=== PATIENT | female | born 1975 | race Caucasian/White ===

== ENCOUNTER 2018-05-28 08:28 | Day surgery (SDC) | payer OTHER ==
[~2018-05-28 08:28] MED LIST: Buffered Lidocaine 0.9% SYRIN* 5 ML/SYR SYRINGE INTRADERM ONE; Famotidine IV* 10 MG/ML 2 ML (20 mg) IV ONE
[2018-05-28] MEDS ORDERED: Famotidine IV* 10 MG/ML 2 ML (20 mg) ONE (08:36)
[2018-05-28] MEDS ORDERED: Lidocaine 2% PF * 5 ML VIAL ONE (09:44)
[2018-05-28] MEDS ORDERED: Propofol* 10 MG/ML 20 ML BTL IV PUSH ONE (09:44)
[2018-05-28] MEDS ORDERED: fentaNYL* 50 MCG/ML 2 ML VIAL (100 MCG VIAL) ONE ×2 (09:44→11:08)
[2018-05-28] MEDS ORDERED: Ondansetron INJ* 2 MG/ML VIAL ONE (09:44)
[2018-05-28] MEDS ORDERED: Midazolam* 1 MG/ML 5 ML VIAL (5 MG) ONE (09:44)
[2018-05-28] MEDS ORDERED: Ketorolac INJ* 30 MG/ML 1 ML VIAL ONE (09:44)
[2018-05-28] MEDS ORDERED: Dexamethasone IV* 4 MG/ML 1 ML (4 MG) ONE (09:44)
[2018-05-28] MEDS ORDERED: DiMENhydriNATE IV* 50 MG/ML VIAL IV PUSH PRN ×2 (09:47→13:04)
[2018-05-28] MEDS ORDERED: Naloxone* 0.4 MG/ML 1 ML VIAL IV PRN (09:47)
[2018-05-28] MEDS ORDERED: Acetaminophen TAB* 325 MG PO PRN (09:47)
[2018-05-28] MEDS ORDERED: ROPIVACAINE 5 MG/ML 30 ML BTL (0.5%) ONE (10:22)
[2018-05-28] MEDS ORDERED: ceFAZolin 2 GM in NS PREMIX(*) 2 GM/100 ML BAG IVPB ONE (11:05)
[2018-05-28] MEDS ORDERED: DiMENhydriNATE IV* 50 MG/ML VIAL ONE (12:20)
[2018-05-28] MEDS ORDERED: Scopolamine 1.5 mg* PATCH ONE (13:03)
[2018-05-28 13:53] VITALS: BP 125/72
[2018-05-28] MEDS ORDERED: Scopolamine 1.5 mg* PATCH TRANSDERM SCH (14:00)
--- NOTE | 2018-05-29 01:34 | OP ---
DATE OF OPERATION: 05/28/18 - [facility] DATE OF : 75 SURGEON: Medardo Rosales MD [employer] REPRESENTATIVE: VENKAT Gottlieb ANESTHESIOLOGIST: Linda Glaser MD ANESTHESIA: General. PRE-OP DIAGNOSIS: Right median nerve compression near the wrist and distal forearm secondary to prior surgery for Kienbock's disease. POST-OP DIAGNOSIS: Right median nerve compression near the wrist and distal forearm secondary to prior surgery for Kienbock's disease. OPERATIVE PROCEDURE: Right median nerve extensive neurolysis at the wrist utilizing an incision roughly 15 to 20 cm in length with extensive median nerve neurolysis and nerve wrapping. Please note that this was substantially more difficult that a normal carpal tunnel release. INDICATIONS: Antonia has had Kienbock's disease and has had multiple procedures on the right wrist including a radial shortening osteotomy done through a volar approach with subsequent removal of the plate. She developed severe neurogenic pain in the median nerve distribution. She has a Tinel's sign in the distal forearm near the area of her prior incision. I talked to her about doing a decompression and see if we can get her some relief. She very much wanted to proceed. She understands the risks of persistent pain and numbness and tingling despite surgery. ESTIMATED BLOOD LOSS: 2 mL. COMPLICATIONS: None. FINDINGS: See above and below. DESCRIPTION OF PROCEDURE: Antonia was seen in the preoperative holding area. The correct site, side, and procedure were identified. We came back to the operating room where the arm was prepped and draped in the usual fashion. A time-out was performed. The arm was exsanguinated with the Esmarch and the tourniquet inflated to 250 mmHg. I then made a longitudinal incision in the proximal palm, which was brought back across the ulnar wrist in William type fashion. This was then connected to her prior FCR incision proximally. Dissection was carried down. The distal antebrachial fascia and transverse carpal ligament were identified. The transverse carpal ligament was released just off the radial aspect of the hook of the hamate. It was immediately apparent that the median nerve in the area was very scarred and adherent to the adjacent tissue; this continued to a level about 3 to 4 cm proximal to the wrist flexion crease. Ultimately, extensive median nerve neurolysis was performed. It took quite some time, but I was able to free up the median nerve circumferentially from all the adjacent scar tissue. It was scarred to the FDS muscle as well. Ultimately, I ended up cleaning up all of that tissue and once I performed the neurolysis, it looked like it needed a nerve wrap and so I brought in an AxoGuard 7 x 40 mm nerve wrap. This was placed around the median nerve in the carpal tunnel and the distal forearm. This was sewed into place with 6-0 Prolene suture taking care not to sew the wrap to the nerve. Once all of the disease portions of the nerve had been covered and wrapped, we irrigated out the wound. Skin was closed with 4-0 nylon suture. A short arm cock-up splint was applied. Tourniquet was deflated and she was taken to the recovery room in stable condition. [id number]/CPS #: [id number] SEN
== END 2018-05-28 13:50 | disposition home or self-care (01) ==
LOC: OREAST 08:28
PROVIDERS: ATTEND Orthopaedic Surgery Hand Surgery
CPT/HCPCS: A9270-GY; J0690; J1100; J1240; J1885; J2250; J2405; J2704; J2795; J3010

== ENCOUNTER 2019-01-26 01:04 | Emergency (ER) | payer MEDICARE, BC, MEDICAID ==
--- NOTE | 2019-01-26 02:12 | ED ---
Lower Extremity - HPI Summary HPI Summary: Pt is a 43 y/o female who presents to the ED c/o LLE pain. 3 days ago she began to have LLE pain, located in her calf and behind her knee. Pt also c/o numbness of her left foot. She denies any edema. Pain is rated a 9/10 in severity, and is not made better or worse by anything. PMHx arthritis. Pt denies smoking or use of control. She takes daily ASA. - History of Current Complaint Chief Complaint: EDExtremityLower Stated Complaint: "L LEG PAIN" PER PT Hx Obtained From: Patient Mechanism Of Injury: Other - No injury Onset of Pain: Days - 3 Onset/Duration: Still Present Severity Currently: Severe Pain Intensity: 9 Pain Scale Used: 0-10 Numeric Timing: Constant Location: Is Discrete @ - LLE Associated Signs And Symptoms: Positive: Other - numbness. Negative: Swelling Aggravating Factor(s): Nothing Alleviating Factor(s): Nothing - Allergies/Home Medications Allergies/Adverse Reactions: Allergies Allergy/AdvReac Type Severity Reaction Status Date / Time No Known Allergies Allergy Verified 01/26/19 01:13 PMH/Surg Hx/FS Hx/Imm Hx Cardiovascular History: Reports: Hx Hypercholesterolemia, Hx Hypertension, Hx Myocardial Infarction GI History: Reports: Hx Gastroesophageal Reflux Disease History: Reports: Hx Kidney Stones - 2 YRS AGO Musculoskeletal History: Reports: Hx Arthritis - BACK, Hx Back Problems Sensory History: Denies: Hx Contacts or Glasses, Hx Hearing Aid Opthamlomology History: Denies: Hx Contacts or Glasses Neurological History: Reports: Hx Migraine - r/t BP- now on meds- no more migraines, Other Neuro Impairments/Disorders - CHARCOT-SUNG TOOTH Psychiatric History: Reports: Hx Depression - Cancer History Hx Chemotherapy: No - Surgical History Surgery Procedure, Year, and Place: 1997 TUBAL LIGATION. 2011 L5/S1 FUSION [place]. 2011 LASER LITHOTRIPSY. 2000 RIGHT WRIST. hysterectomy 2014 Hx Anesthesia Reactions: No Infectious Disease History: No Infectious Disease History: Denies: Traveled Outside the [place] in Last 30 Days - Family History Known Family History: Positive: Cardiac Disease, Hypertension, Diabetes, Other - [place] - Social History Alcohol Use: None Hx Substance Use: No Substance Use Type: Reports: None Hx Tobacco Use: Yes Smoking Status (MU): Former Smoker Amount Used/How Often: 1/2 PACK PER DAY, smoked for 20 years Review of Systems Positive: Myalgia - LLE. Negative: Edema Positive: Numbness - L foot All Other Systems Reviewed And Are Negative: Yes Physical Exam - Summary Physical Exam Summary: Appearance: well appearing, no pain distress Skin: warm, dry, reflects adequate perfusion Head/face: normal Eyes: EOMI, JOCELINE ENT: mucous membranes moist Neck: supple, non-tender Respiratory: CTA, breath sounds present Cardiovascular: RRR, pulses symmetrical Abdomen: non-tender, soft Bowel Sounds: present Musculoskeletal: strength/ROM intact, normal gait, back pain with straight leg raise, no redness or edema of LLE, tenderness of posterior left calf and thigh without palpable cord Neuro: A&Ox3, symmetrically decreased patellar reflexes Triage Information Reviewed: Yes Vital Signs On Initial Exam: Initial Vitals Temp Pulse Resp BP Pulse Ox 98.4 F 72 16 149/89 98 01/26/19 01:09 01/26/19 01:09 01/26/19 01:09 01/26/19 01:01/26/19 01:09 Vital Signs Reviewed: Yes Diagnostics - Vital Signs Vital Signs Temp Pulse Resp BP Pulse Ox 01/26/19 01:09 98.4 F 72 16 149/89 98 - Laboratory Lab Statement: Any lab studies that have been ordered have been reviewed, and results considered in the medical decision making process. Lower Extremity Course/Dx - Course Course Of Treatment: Patient with a history of [id number] and chronic back pain presents with pain in the left posterior calf, thigh. Possible lumbar radiculopathy but would like to get a DVT/vascular ultrasound to rule out DVT and López's cyst. This is not available at this hour and the patient has chosen to be treated for discomfort now and return at 7 AM for vascular ultrasound. She was offered to stay until that time which she declined. - Diagnoses Differential Diagnosis/HQI/PQRI: Positive: Contusion, DVT, Sciatica, Sprain, Strain Provider Diagnoses: Lumbar radiculopathy, Left leg pain Discharge - Sign-Out/Discharge Documenting (check all that apply): Patient Departure - Discharge Patient Received Moderate/Deep Sedation with Procedure: No - Discharge Plan Condition: Improved Disposition: HOME Patient Education Materials: Lumbar Radiculopathy (ED), Leg Pain (ED) Referrals: Keila Campbell MD [Primary Care Provider] - Additional Instructions: Return to the ER at 7 AM to have a vascular ultrasound performed to evaluate your leg for blood clot. Return earlier should you have chest pain, trouble breathing, uncontrolled pain or other concerns. - Billing Disposition and Condition Condition: IMPROVED Disposition: Home - Attestation Statements Document Initiated by Desmond: Yes Documenting Scribe: Kira Pascal Provider For Whom Scribe is Documenting (Include Credential): Goyo Germain MD Scribe Attestation: Kira Madison, scribed for Goyo Germain MD on 01/26/19 at 0603. Scribe Documentation Reviewed: Yes Provider Attestation: The documentation as recorded by the Kira carter accurately reflects the service I personally performed and the decisions made by , Goyo Germain MD Status of Scribe Document: Viewed
[2019-01-26] MEDS ORDERED: Ibuprofen TAB* 600 MG PO ONE (02:21)
[2019-01-26] MEDS ORDERED: Cyclobenzaprine TAB* 10 MG PO ONE (02:21)
[2019-01-26] MEDS ORDERED: oxyCODONE/Acetamin 5/325 MG* TAB PO ONE (02:21)
[2019-01-26 02:34] VITALS: BP 138/64
== END 2019-01-26 02:34 | disposition home or self-care (01) ==
LOC: ED 01:04
DX: M54.16 Radiculopathy, lumbar region (principal); M79.605 Pain in left leg; Z87.891 Personal history of nicotine dependence
CPT/HCPCS: 99282; A9270-GY

== ENCOUNTER 2019-01-26 07:00 | Emergency (ER) | payer MEDICARE, BC, MEDICAID ==
[2019-01-26 09:14] VITALS: BP 135/83
--- NOTE | 2019-01-26 13:28 | UC ---
Lower Extremity/Ankle HPI - HPI Summary HPI Summary: Patient is a 43-year-old female presenting to the ED with left lower extremity pain without edema. She states pain began approximately 2-3 days ago. It is located in her calf and behind her knee. This radiates up into the hamstring area over the area where she had a vein ligated. She endorses intermittent numbness and tingling to her left foot and toes. Pain is worse with rest and better with ambulation. She does have arthritis, denies any recent travel, OCP use, smoking. She was seen in the ED last night and encouraged to return this morning for a DVT ultrasound workup. - History of Current Complaint Chief Complaint: EDExtremityLower Stated Complaint: "VASCULAR US OF LT LEG" PER PT Time Seen by Provider: 01/26/19 07:10 Hx Obtained From: Patient ?: No Onset/Duration: Sudden Onset Severity Initially: Moderate Severity Currently: Moderate Pain Intensity: 5 Pain Scale Used: 0-10 Numeric Aggravating Factor(s): Other - rest Alleviating Factor(s): Other - ambulation Able to Bear Weight: Yes - Risk Factors Gout Risk Factors: Negative DVT Risk Factors: Negative Septic Arthritis Risk Factor: Negative - Allergies/Home Medications Allergies/Adverse Reactions: Allergies Allergy/AdvReac Type Severity Reaction Status Date / Time No Known Allergies Allergy Verified 01/26/19 08:28 PMH/Surg Hx/FS Hx/Imm Hx Previously Healthy: Yes - Surgical History Surgical History: Yes Surgery Procedure, Year, and Place: 1997 TUBAL LIGATION. 2011 L5/S1 FUSION [place]. 2010 LASER LITHOTRIPSY. 2000 RIGHT WRIST. hysterectomy 2014 - Family History Known Family History: Positive: Cardiac Disease, Hypertension, Diabetes, Other - [place] - Social History Alcohol Use: None Substance Use Type: None Smoking Status (MU): Former Smoker Amount Used/How Often: 1/2 PACK PER DAY, smoked for 20 years When Did the Patient Quit Smoking/Using Tobacco: 2017 Review of Systems All Other Systems Reviewed And Are Negative: Yes Constitutional: Positive: Negative Skin: Positive: Negative ENT: Positive: Negative Genitourinary: Positive: Negative Motor: Positive: Other - pain to the L calf Neurovascular: Positive: Negative Musculoskeletal: Positive: Negative Is Patient Immunocompromised?: Yes Physical Exam Triage Information Reviewed: Yes Appearance: Well-Appearing, Well-Nourished Vital Signs: Initial Vital Signs Temp 97.8 F 01/26/19 07:03 Pulse 72 01/26/19 07:03 Resp 16 01/26/19 07:03 BP 138/91 01/26/19 07:03 Pulse Ox 98 01/26/19 07:03 Vital Signs Reviewed: Yes Eye Exam: Normal Eyes: Positive: Conjunctiva Clear Neck exam: Normal Neck: Positive: Supple, No Lymphadenopathy Respiratory Exam: Normal Respiratory: Positive: Chest non-tender Cardiovascular Exam: Normal Cardiovascular: Positive: RRR Musculoskeletal Exam: Normal Musculoskeletal: Positive: Strength Intact Psychological Exam: Normal Psychological: Positive: Normal Response To Family Skin Exam: Normal Lower Extremity Course/Dx - Course Course Of Treatment: Patient was seen here this morning. She presents for the second time with left calf pain with request for DVT ultrasound. DVT ultrasound obtained which is negative. Discussed results with patient. On physical examination, patient has pain with palpation to the left calf. Pulses +2 intact bilaterally. There is no ecchymosis or erythema. No numbness or tingling on physical exam. Patient is ambulatory. She will follow-up with her PCP. - Differential Dx/Diagnosis Differential Diagnosis/HQI/PQRI: Other - strain, calf pain, varicose veins, claudication Provider Diagnosis: Calf pain Discharge - Sign-Out/Discharge Documenting (check all that apply): Patient Departure Patient Received Moderate/Deep Sedation with Procedure: No - Discharge Plan Condition: Stable Disposition: HOME Patient Education Materials: Lumbar Radiculopathy (ED) Referrals: Keila Campbell MD [Primary Care Provider] - Additional Instructions: This may be a nerve pain you are experiencing You have good pulses and no DVT found on ultrasound Ibuprofen 600mg three times daily as needed Heat to the area Try elevation Please follow up with your PCP as scheduled in 1 week If you develop discolorations or temperature changes to the leg/foot - you need to be reseen immediately - Billing Disposition and Condition Condition: STABLE Disposition: Home
== END 2019-01-26 09:13 | disposition home or self-care (01) ==
LOC: ED 07:00
DX: M79.662 Pain in left lower leg (principal); Z87.891 Personal history of nicotine dependence
CPT/HCPCS: 99282

== ENCOUNTER 2019-01-29 01:53 | Observation (INO) | payer MEDICARE, BC, MEDICAID ==
[2019-01-29] MEDS ORDERED: Ondansetron INJ* 2 MG/ML VIAL IV ONE (02:26)
[2019-01-29] MEDS ORDERED: Morphine 4 MG/ML VIAL (1 ml) 4 MG/ML VIAL IV ONE (02:26)
[2019-01-29] MEDS ORDERED: Aspirin 81 mg CHEW TAB* 81 MG TAB.CHEW PO ONE (02:26)
--- NOTE | 2019-01-29 02:26 | ED ---
HPI Chest Pain - HPI Summary HPI Summary: 43 year old F presenting to [facility] accompanied by with a chief complaint of mid sternal, constant chest pain radiating to the back since 2 hours ago. The patient rates the pain 10/10 in severity. Symptoms aggravated by nothing. Symptoms alleviated by nothing. Patient reports vomiting, nausea, shortness of breath, insomnia. Patient was seen here in ED on 01/26/19 for posterior left thigh pain. Patient has hx AL on 03/21/17. Patient was unable to get stent at the time. - History of Current Complaint Chief Complaint: EDChestPainROMI Time Seen by Provider: 01/29/19 02:16 Hx Obtained From: Patient Onset/Duration: Started Hours Ago - 2, Still Present Timing: Constant Current Severity: Severe Pain Intensity: 10 Pain Scale Used: 0-10 Numeric Chest Pain Location: Mid Sternal Chest Pain Radiates: Yes Chest Pain Radiates To:: Back Aggravating Factor(s): Nothing Alleviating Factor(s): Nothing Associated Signs and Symptoms: Positive: Other: - vomiting, SOB, insomnia, nausea - Allergy/Home Medications Allergies/Adverse Reactions: Allergies Allergy/AdvReac Type Severity Reaction Status Date / Time No Known Allergies Allergy Verified 01/29/19 02:11 Home Medications: Home Medications celeCOXIB CAP* [CeleBREX CAP*] 200 mg PO DAILY 01/29/19 [History Confirmed 01/29] PMH/Surg Hx/FS Hx/Imm Hx Previously Healthy: No Cardiovascular History: Reports: Hx Hypercholesterolemia, Hx Hypertension, Hx Myocardial Infarction - in 2017 GI History: Reports: Hx Gastroesophageal Reflux Disease History: Reports: Hx Kidney Stones - 2 YRS AGO Musculoskeletal History: Reports: Hx Arthritis - BACK, Hx Back Problems Sensory History: Denies: Hx Contacts or Glasses, Hx Hearing Aid Opthamlomology History: Denies: Hx Contacts or Glasses Neurological History: Reports: Hx Migraine - r/t BP- now on meds- no more migraines, Other Neuro Impairments/Disorders - CHARCOT-SUNG TOOTH Psychiatric History: Reports: Hx Depression - Cancer History Hx Chemotherapy: No - Surgical History Surgery Procedure, Year, and Place: 1997 TUBAL LIGATION. 2011 L5/S1 FUSION [place]. 2010 LASER LITHOTRIPSY. 2000 RIGHT WRIST. hysterectomy 2015 Hx Anesthesia Reactions: No Infectious Disease History: No Infectious Disease History: Denies: Traveled Outside the [place] in Last 30 Days - Family History Known Family History: Positive: Cardiac Disease, Hypertension, Diabetes, Other - [place] - Social History Alcohol Use: None Hx Substance Use: No Substance Use Type: Reports: None Hx Tobacco Use: Yes Smoking Status (MU): Former Smoker Amount Used/How Often: 1/2 PACK PER DAY, smoked for 20 years Review of Systems Positive: Chest Pain Positive: Shortness Of Breath Positive: Vomiting, Nausea Positive: Other - insomnia All Other Systems Reviewed And Are Negative: Yes Physical Exam - Summary Physical Exam Summary: VITAL SIGNS: Reviewed. GENERAL: Patient is a well-developed and nourished FEMALE who is lying comfortable in the stretcher. Patient is not in any acute respiratory distress. HEAD AND FACE: No signs of trauma. No ecchymosis, hematomas or skull depressions. No sinus tenderness. EYES: PERRLA, EOMI x 2, No injected conjunctiva, no nystagmus. EARS: Hearing grossly intact. Ear canals and tympanic membranes are within normal limits. MOUTH: Oropharynx within normal limits. NECK: Supple, trachea is midline, no adenopathy, no JVD, no carotid bruit, no c- spine tenderness, neck with full ROM CHEST: Symmetric, no tenderness at palpation LUNGS: Clear to auscultation bilaterally. No wheezing or crackles. CVS: Regular rate and rhythm, S1 and S2 present, no murmurs or gallops appreciated. ABDOMEN: Soft, non-tender. No signs of distention. No rebound no guarding, and no masses palpated. Bowel sounds are normal. EXTREMITIES: FROM in all major joints, no edema, no cyanosis or clubbing. NEURO: Alert and oriented x 3. No acute neurological deficits. Speech is normal and follows commands. SKIN: Dry and warm Triage Information Reviewed: Yes Vital Signs On Initial Exam: Initial Vitals Temp Pulse Resp BP Pulse Ox 98.7 F 73 17 158/95 99 01/29/19 02:11 01/29/19 02:11 01/29/19 02:11 01/29/19 02:11 01/29/19 02:11 Vital Signs Reviewed: Yes Diagnostics - Vital Signs Vital Signs Temp Pulse Resp BP Pulse Ox 01/29/19 02:11 98.7 F 73 17 158/95 99 - Laboratory Result Diagrams: 01/29/19 02:46 05/17/19 02:46 Lab Statement: Any lab studies that have been ordered have been reviewed, and results considered in the medical decision making process. - Radiology CXR Radiology Interpretation Completed By: ED Physician Summary of Radiographic Findings: No acute process. Pending official report. - EKG 0207 Cardiac Rate: NL - 76 BPM EKG Rhythm: Sinus Rhythm Summary of EKG Findings: Normal axis. Normal interval. No ischemic changes. Chest Pain Course/Dx - Course Course Of Treatment: 43 year old F presenting to [facility] accompanied by with a chief complaint of mid sternal, constant chest pain radiating to the back , vomiting, nausea, shortness of breath, insomnia since 2 hours ago. In ED course, patient was given Aspirin, Morphine, Zofran, and Protonix. EKG was normal. CXR shows no acute process. Test results showed no significant abnormalities. Patient has hx AL after which she did not have stent placed. Spoke with Dr. Webster, hospitalist, who agrees to admit patient. The patient will be admitted to hospitalist. The patient is agreeable to this plan. - Diagnoses Provider Diagnoses: Chest pain - Provider Notifications Discussed Care Of Patient With: Sunshine Webster Time Discussed With Above Provider: 03:21 Instructed by Provider To: Other - Dr. Webster, hospitalist, agrees to admit patient. Discharge - Sign-Out/Discharge Documenting (check all that apply): Patient Departure - Admit Patient Received Moderate/Deep Sedation with Procedure: No - Discharge Plan Condition: Stable Disposition: ADMITTED TO [facility] Referrals: Keila Campbell MD [Primary Care Provider] - - Attestation Statements Document Initiated by Scribe: Yes Documenting Scribe: Ale Floewr Provider For Whom Desmond is Documenting (Include Credential): Deepti Escamilla MD Scribe Attestation: Ale Madison, ezeed for Deepti Escamilla MD on 01/29/19 at 0333. Status of Scribe Document: Ready
[2019-01-29] MEDS ORDERED: Pantoprazole IV* 40 MG IV ONE (02:27)
--- OUTSIDE RECORDS SUMMARY | 2019-01-29 02:39 | XMS REPORT | Continuity of Care Document ---
:1975 External Reference #:[id number] Author Name Keila Campbell MD Address [address] [place] [address] Care Team Providers Name Role Phone Keila Campbell MD Primary Care Physician Unavailable Payers Date Identification Numbers Payment Provider Subscriber Effective: 2018 Policy Number: [id number] Medicare Part B Antonia Judge Group Name: [facility] [address] PayID: [id number] [place] [address] Effective: 2018 Policy Number: [employer] Antonia Judge [id number] Group Number: MEDICARE [address] [address] Group Name: Supplement N GERALDINE Sears [id number] PayID: [id number] Policy Number: [id number] Medicaid Antonia Judge PayID: [id number] [address] [place] [address] Onset: 2010 Policy Number: [id number] [employer] Antonia Judge PayID: [id number] [address] [place] [address] Policy Number: [place] [facility] [employer] [facility] Dept [address] [place] [address] Expires: 2016 Policy Number: [facility] Plan [facility] Antonia Judge [id number] Group Number: [id number] [address] PayID: [id number] [place] [address] Problems Active Problems Provider Date Mixed hyperlipidemia Keila Campbell MD Onset: 12/14/2013 Spina bifida occulta Keila Campbell MD Onset: 08/31/2010 Hereditary peripheral neuropathy Keila Campbell MD Onset: 05/17/2015 Kidney stone Keila Campbell MD Onset: 10/17/2015 Moderate recurrent major depression Keila Campbell MD Onset: 01/24/2016 Low back pain Keila Campbell MD Onset: 03/13/2016 Essential hypertension Keila Campbell MD Onset: 03/27/2017 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 Inactive Problems Electrocardiogram abnormal Keila Campbell MD Onset: 03/13/2016 Inactive: 01/29/2018 Resolved Problems Tobacco user Keila Campbell MD Onset: 08/01/2016 Resolved: 05/30/2017 Family History Date Family Member(s) Observation Comments Father Diabetes, Adult Non Insulin Dependent Onset: (age 50 Years) Father CAD Father Hypertension First Son Allergies Seasonal Social History Type Date Description Comments Sex Unknown Marital Status Single Lives With Boyfriend Samuel Jin Lives With Son Diet 08/03/2018 Average daily caloric on no special diet intake excessive 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 for back injury - on SSD in 2018 Tobacco Use Start: 09/15/90 End: Former Cigarette Smoker had been N intermittent 03/24/17 smoker - 1/2 - 1 pack daily Smoking Status Reviewed: 08/03/18 Former Cigarette Smoker had been N intermittent smoker - 1/2 - 1 pack daily ETOH Use Rarely consumes alcohol Tobacco Use Start: Unknown End: Patient is a former Unknown smoker Allergies, Adverse Reactions, Alerts Description No Known Drug Allergies Medications Active Medications SIG Qnty Indications Ordering Date Provider Aspirin 81 1 by mouth every 90tabs I25.110 Keila Campbell, 01/28/2019 81mg Tablets day MD SHETH Celecoxib 1 by mouth every 30caps Keila Campbell, 01/28/2019 200mg Capsules day as needed Ibuprofen take 1 tablet by 90tabs M54.5 Keila Campbell, 08/28/2018 800mg Tablets mouth 3 times a MD day for 1 week. do not take with other nsaids Nitroglycerin 1 sl as needed 30tabs I25.110 Keila Campbell, 08/03/2018 0.4mg chest pain may MD Tablets Sub repeat every 5 minutes as needed x 2 additional doses. if no relief then go to er Omeprazole 1 by mouth every 90caps R12 Keila Campbell, 11/25/2017 40mg Capsules day MD SHETH Benzonatate 2 by mouth three 60caps R05 Keila Campbell, 07/21/2017 100mg times a day as MD Capsules needed for cough Atorvastatin Calcium 1 by mouth every 90tabs E78.2 Keila Campbell, 2016 40mg day Tablets Lisinopril 1 by mouth every 90tabs I10 Keila Campbell, 03/27/2017 5mg Tablets day Proctosol HC apply twice a day 28.350gm K64.9 Keila Campbell, 01/27/2017 2.5% Cream if needed until MD resolved Acetaminophen 2 by mouth four Unknown 325mg times a day as Tablets needed Cyclobenzaprine HCL 2 tablets by Unknown 10mg mouth as needed Tablets for muscle spasms. Vitamin D 1 by mouth every 90tabs Keila Campbell, 1000Unit day Tablets Cymbalta 1 by mouth every F33.1 Unknown 20mg Caps bedtime Part M54.5 History Medications Oseltamivir 1 by mouth every 10caps Keila Campbell, 10/14/2017 - Phosphate day for 10 days 11/25/2017 75mg Capsules Amoxicillin 1 by mouth twice a 20tabs R05 Keila Campbell, 07/21/2017 - 875mg day for 10 days 07/31/2017 Tablets Aspir-81 1 by mouth every 90tabs I25.110 Keila Campbell, 03/27/2017 - 81mg Tablets day MD 01/28/2019 Amoxicillin/Clavulan 1 by mouth twice a 20tabs J01.90 Shawn Suarez, - ate Potassium day DO 01/14/2017 875-125mg Tablets Benzonatate 1 by mouth every 8 30caps J01.90 Shawn Suarez, 01/04/2017 - 200mg hours as needed DO 01/14/2017 Capsules for cough, may cause drowsiness Fluticasone 2 sprays each nare 16gm R09.81 Keila Campbell 10/02/2016 - Propionate every day MD 01/27/2019 50mcg/Act Suspension Azelastine HCL 2 sprays each 30ml J01.90 Keila Campbell, 09/18/2016 - (Nasal) nostril twice a MD 10/02/2016 0.15% day as needed for Solution nasal congestion Azithromycin 2 by mouth today, 6tabs J01.90 Keila Campbell, 09/18/2016 - 250mg then 1 by mouth 10/04/2016 Tablets daily x 4 more days Benzonatate 1 by mouth every 8 30caps J01.90 Digiovanna, 08/28/2016 - 200mg hours as needed Minerva, LATHE MACHINIST 10/29/2016 Capsules for cough, may cause drowsiness Amoxicillin/Clavulan 1 by mouth every 20tabs J01.90 Digiovanna, 2015 - ate Potassium 12 hours for 10 Minerva, LATHE MACHINIST 09/07/2016 days 875-125mg Tablets Meloxicam 1 tab by mouth 30tabs M54.6 Kiela Campbell, 08/13/2016 - 15mg daily for pain for MD 09/18/2016 Tablets 1-2 weeks, then daily as needed for pain Sulfamethoxazole/Tri 1 by mouth twice a 20tabs L02.13 Shawn Suarez, - methoprim DS day DO 07/08/2016 800-160mg Tablets Cephalexin 1 by mouth four 40tabs J01.00 Keila Campbell, 10/11/2015 - 500mg times a day x 10 MD 01/24/2016 Tablets days Neomycin/Polymyxin/H 4 drops to 10ml H60.311 Keila Campbell, 10/11/2015 - ydrocortisone (Otic) affected ear 4 MD 01/24/2016 times daily x 10 [id number] Solution days Ibuprofen 1 po tid prn 90tabs N20.0 Keila Campbell, 01/18/2005 - 200mg MD 11/25/2017 Tablets M54.5 Hydrocodone Bitartrate / 1-2 by mouth four Unknown - 2018 Acetaminophen times a day as 5-325mg needed for pain Brilinta 1 by mouth twice a I10 Unknown - 08/03/2018 90mg Tablets day I25.110 Clopidogrel Bisulfate 1 by mouth every day Unknown - 2017 75mg Tablets Lidocaine 1 patch 12 hours on Unknown - 11/25/2017 5% Patches /12 hours off Ranitidine 150 Maximum 1 by mouth twice a R12 Unknown - 2017 Strength day 150mg Tablets Brilinta 1 by mouth twice a I10 Unknown - 09/18/2017 90mg Tablets day I25.110 Metoprolol 1/2 by mouth twice a I10 Unknown - 05/30/2017 25mg day I25.110 Voltaren apply to the affected Unknown - 08/13/2016 1% Gel area four times a day as needed Lidoderm 1 patch 12 hours on 90units Unknown - 10/11/2015 5% Patches /12 hours off Meclizine HCL 1 po Q8 HRS prn Unknown - 03/13/2016 25mg dizziness Tablets Meloxicam 1 po qd with food x 2 Unknown - 10/11/2015 7.5mg Tablets weeks, then prn/ On Hold Immunizations CPT Code Status Date Vaccine Lot # [id number] Given 05/23/2011 Tdap (Adacel) Ages 7 And Above Only [id number] Refused 08/03/2018 Afluria Or Fluvirin Flu Vac Intramuscular 74949 Refused 01/29/2018 Pneumococcal 23 Immunization Adult Or Immunosuppressed Patient [id number] Refused 11/25/2017 Afluria Or Fluvirin Flu Vac Intramuscular Vital Signs Date Vital Result Comment 01/28/2019 3:48pm Weight 185.00 lb Heart Rate 73 /min BP Systolic 144 mmHg BP Diastolic 94 mmHg Respiratory Rate 18 /min Height 59.50 inches 4'11.50" O2 % BldC Oximetry 98 % Ra BMI (Body Mass Index) 36.7 kg/m2 08/28/2018 4:20pm Weight 189.00 lb Heart Rate 87 /min BP Systolic 140 mmHg BP Diastolic 82 mmHg Respiratory Rate 18 /min Height 59.50 inches 4'11.50" O2 % BldC Oximetry 98 % Ra BMI (Body Mass Index) 37.5 kg/m2 08/03/2018 8:03am Weight 183.00 lb Heart Rate 80 /min BP Systolic 124 mmHg BP Diastolic 80 mmHg Respiratory Rate 18 /min Height 59.50 inches 4'11.50" 09/18/16 BMI (Body Mass Index) 36.3 kg/m2 01/29/2018 8:13am Weight 175.00 lb Heart Rate 72 /min BP Systolic 112 mmHg BP Diastolic 80 mmHg Respiratory Rate 18 /min Height 59.50 inches 4'11.50" 09/18/16 BMI (Body Mass Index) 34.8 kg/m2 11/25/2017 2:43pm Weight 170.00 lb Heart Rate 78 /min BP Systolic 130 mmHg BP Diastolic 74 mmHg Respiratory Rate 18 /min Height 59.50 inches 4'11.50" 09/18/16 BMI (Body Mass Index) 33.8 kg/m2 09/18/2017 8:42am Weight 170.00 lb Heart Rate 68 /min BP Systolic 132 mmHg BP Diastolic 72 mmHg Respiratory Rate 18 /min Height 59.50 inches 4'11.50" 09/18/16 BMI (Body Mass Index) 33.8 kg/m2 07/21/2017 8:38am Body Temperature 98.3 F Weight 170.00 lb Heart Rate 76 /min BP Systolic 126 mmHg BP Diastolic 80 mmHg Respiratory Rate 18 /min Height 59.50 inches 4'11.50" 09/18/16 O2 % BldC Oximetry 97 % BMI (Body Mass Index) 33.8 kg/m2 05/30/2017 8:00am Weight 166.00 lb Heart Rate 72 /min BP Systolic 120 mmHg BP Diastolic 68 mmHg Respiratory Rate 18 /min Height 59.50 inches 4'11.50" 09/18/16 BMI (Body Mass Index) 33.0 kg/m2 03/27/2017 1:43pm Weight 165.00 lb Heart Rate 60 /min BP Systolic 122 mmHg BP Diastolic 60 mmHg Respiratory Rate 18 /min Height 59.50 inches 4'11.50" 09/18/16 BMI (Body Mass Index) 32.8 kg/m2 01/27/2017 8:17am Weight 174.00 lb Heart Rate 68 /min BP Systolic 132 mmHg BP Diastolic 76 mmHg Respiratory Rate 18 /min Height 59.50 inches 4'11.50" 09/18/16 BMI (Body Mass Index) 34.6 kg/m2 01/04/2017 10:16am Body Temperature 98.3 F Weight 179.00 lb Heart Rate 84 /min BP Systolic 136 mmHg BP Diastolic 84 mmHg Respiratory Rate 18 /min Height 59.50 inches 4'11.50" 09/18/16 O2 % BldC Oximetry 97 % On room air BMI (Body Mass Index) 35.5 kg/m2 10/29/2016 1:24pm Weight 171.00 lb Heart Rate 88 /min BP Systolic 122 mmHg BP Diastolic 80 mmHg Respiratory Rate 18 /min Height 59.50 inches 4'11.50" 09/18/16 BMI (Body Mass Index) 34.0 kg/m2 10/04/2016 10:21am Weight 169.00 lb Heart Rate 72 /min BP Systolic 148 mmHg BP Diastolic 82 mmHg BP Systolic Recheck 130 mmHg BP Diastolic Recheck 80 mmHg Respiratory Rate 18 /min Height 59.50 inches 4'11.50" 09/18/16 BMI (Body Mass Index) 33.6 kg/m2 09/18/2016 9:20am Body Temperature 97.7 F Weight 172.00 lb Heart Rate 80 /min BP Systolic 158 mmHg BP Diastolic 100 mmHg BP Systolic Recheck 150 mmHg BP Diastolic Recheck 90 mmHg Respiratory Rate 18 /min Height 59.50 inches 4'11.50" 09/18/16 BMI (Body Mass Index) 34.2 kg/m2 08/28/2016 1:38pm Body Temperature 98.6 F Weight 169.00 lb Heart Rate 88 /min BP Systolic 142 mmHg BP Diastolic 82 mmHg Respiratory Rate 19 /min Height 59.50 inches 4'11.50" 01/24/16 O2 % BldC Oximetry 98 % Ra BMI (Body Mass Index) 33.6 kg/m2 08/13/2016 9:11am Weight 169.00 lb Heart Rate 74 /min BP Systolic 120 mmHg BP Diastolic 80 mmHg Respiratory Rate 18 /min Height 59.50 inches 4'11.50" 01/24/16 BMI (Body Mass Index) 33.6 kg/m2 08/01/2016 10:57am Body Temperature 97.2 F Weight 171.00 lb Heart Rate 76 /min BP Systolic 122 mmHg BP Diastolic 70 mmHg Respiratory Rate 18 /min Height 59.50 inches 4'11.50" 01/24/16 BMI (Body Mass Index) 34.0 kg/m2 06/28/2016 1:39pm Body Temperature 98.3 F Weight 168.00 lb Heart Rate 74 /min BP Systolic 146 mmHg BP Diastolic 90 mmHg Respiratory Rate 18 /min Height 59.50 inches 4'11.50" 01/24/16 O2 % BldC Oximetry 9798 % BMI (Body Mass Index) 33.4 kg/m2 03/13/2016 11:16am Weight 170.00 lb Heart Rate 64 /min BP Systolic 112 mmHg BP Diastolic 70 mmHg Respiratory Rate 18 /min Height 59.50 inches 4'11.50" 01/24/16 BMI (Body Mass Index) 33.8 kg/m2 01/24/2016 8:15am Weight 165.00 lb Heart Rate 68 /min BP Systolic 124 mmHg BP Diastolic 80 mmHg Respiratory Rate 18 /min Height 59.50 inches 01/24/16 BMI (Body Mass Index) 32.8 kg/m2 10/11/2015 10:59am Weight 164.00 lb Heart Rate 76 /min BP Systolic 130 mmHg BP Diastolic 90 mmHg Respiratory Rate 18 /min Height 59.50 inches 4'11.50" Done On 09/29/14 BMI (Body Mass Index) 32.6 kg/m2 05/17/2015 9:06am Weight 159.00 lb Heart Rate 76 /min BP Systolic 130 mmHg BP Diastolic 78 mmHg Respiratory Rate 18 /min Height 59.50 inches 4'11.50" Done On 09/29/14 BMI (Body Mass Index) 31.6 kg/m2 04/06/2015 10:15am Weight 156.00 lb Heart Rate 68 /min BP Systolic 132 mmHg BP Diastolic 70 mmHg Respiratory Rate 18 /min Height 59.50 inches 4'11.50" Done On 09/29/14 BMI (Body Mass Index) 31.0 kg/m2 01/09/2015 1:38pm Weight 152.00 lb Heart Rate 76 /min BP Systolic 132 mmHg BP Diastolic 92 mmHg Respiratory Rate 18 /min Height 59.50 inches 4'11.50" Done On 09/29/14 BMI (Body Mass Index) 30.2 kg/m2 01/02/2015 10:27am Weight 152.00 lb Heart Rate 76 /min BP Systolic 130 mmHg BP Diastolic 76 mmHg Respiratory Rate 18 /min Height 59.50 inches 4'11.50" Done On 09/29/14 BMI (Body Mass Index) 30.2 kg/m2 12/23/2014 9:30am Weight 152.00 lb Heart Rate 80 /min BP Systolic 130 mmHg BP Diastolic 88 mmHg Respiratory Rate 18 /min Height 59.50 inches 4'11.50" Done On 09/29/14 BMI (Body Mass Index) 30.2 kg/m2 12/14/2014 10:16am Weight 152.00 lb Heart Rate 76 /min BP Systolic 122 mmHg BP Diastolic 70 mmHg Respiratory Rate 18 /min Height 59.50 inches 4'11.50" Done On 09/29/14 BMI (Body Mass Index) 30.2 kg/m2 10/24/2014 9:52am Weight 153.00 lb Heart Rate 76 /min BP Systolic 122 mmHg BP Diastolic 84 mmHg Respiratory Rate 18 /min Height 59.50 inches 4'11.50" Done On 09/29/14 BMI (Body Mass Index) 30.4 kg/m2 09/29/2014 10:06am Weight 154.00 lb Heart Rate 76 /min BP Systolic 102 mmHg BP Diastolic 70 mmHg Respiratory Rate 18 /min Height 59.50 inches 4'11.50" Done On 09/29/14 BMI (Body Mass Index) 30.6 kg/m2 02/16/2014 9:54am Weight 160.00 lb Heart Rate 76 /min BP Systolic 110 mmHg BP Diastolic 70 mmHg Respiratory Rate 18 /min Height 59.5 inches 4'11.50" (Done On 11/24/13) 02/14/2014 3:44pm Weight 157.00 lb Heart Rate 76 /min BP Systolic 120 mmHg BP Diastolic 70 mmHg Respiratory Rate 18 /min Height 59.5 inches 4'11.50" (Done On 11/24/13) 12/14/2013 2:40pm Weight 172.00 lb Heart Rate 80 /min BP Systolic 128 mmHg BP Diastolic 82 mmHg Respiratory Rate 18 /min Height 59.5 inches 4'11.50" (Done On 11/24/13) 12/03/2013 2:50pm Body Temperature 98.9 F Weight 170.00 lb Heart Rate 84 /min BP Systolic 122 mmHg BP Diastolic 70 mmHg Respiratory Rate 18 /min Height 59.5 inches 4'11.50" (Done On 11/24/13) O2 % BldC Oximetry 97 % 11/24/2013 8:19am Body Temperature 98.4 F Weight 170.00 lb Heart Rate 100 /min BP Systolic 130 mmHg BP Diastolic 80 mmHg Respiratory Rate 18 /min Height 59.5 inches 4'11.50" O2 % BldC Oximetry 98 % 04/20/2012 1:37pm Weight 162.00 lb Heart Rate 72 /min BP Systolic 110 mmHg BP Diastolic 74 mmHg Respiratory Rate 18 /min Height 59.25 inches 4'11.25" (Done On 03/12/12) 03/12/2012 1:28pm Body Temperature 98.3 F Weight 163.00 lb Heart Rate 92 /min BP Systolic 114 mmHg BP Diastolic 74 mmHg Respiratory Rate 18 /min Height 59.25 inches 4'11.25" O2 % BldC Oximetry 97 % 08/01/2011 3:38pm Weight 166.00 lb Heart Rate 80 /min BP Systolic 120 mmHg BP Diastolic 84 mmHg Respiratory Rate 18 /min Height 59.25 inches 4'11.25" (Done On 12/17/10) 05/23/2011 4:13pm Weight 164.00 lb Heart Rate 76 /min BP Systolic 120 mmHg BP Diastolic 80 mmHg Respiratory Rate 18 /min Height 59.25 inches 4'11.25" (Done On 12/17/10) 04/15/2011 1:07pm Weight 161.00 lb Heart Rate 80 /min BP Systolic 114 mmHg BP Diastolic 74 mmHg Respiratory Rate 18 /min Height 59.25 inches 4'11.25" (Done On 12/17/10) 12/17/2010 2:55pm Weight 164.00 lb Heart Rate 72 /min BP Systolic 120 mmHg BP Diastolic 74 mmHg Respiratory Rate 18 /min Height 59.25 inches 4'11.25" 10/30/2010 2:26pm Weight 161.00 lb Heart Rate 56 /min BP Systolic 104 mmHg r arm BP Diastolic 62 mmHg r arm Respiratory Rate 18 /min 10/01/2010 2:44pm Weight 162.00 lb Heart Rate 76 /min BP Systolic 120 mmHg BP Diastolic 84 mmHg Respiratory Rate 18 /min 08/30/2010 8:07am Weight 158.00 lb Heart Rate 80 /min BP Systolic 110 mmHg BP Diastolic 80 mmHg Respiratory Rate 18 /min Height 59.5 inches 4'11.50" 04/14/2009 11:37am Body Temperature 98.0 F Weight 154.00 lb Heart Rate 72 /min BP Systolic 140 mmHg BP Diastolic 78 mmHg 01/13/2009 3:38pm Weight 162.00 lb Heart Rate 84 /min BP Systolic 114 mmHg BP Diastolic 74 mmHg Respiratory Rate 18 /min 12/15/2008 1:38pm Body Temperature 97.7 F Weight 160.00 lb Heart Rate 72 /min BP Systolic 120 mmHg BP Diastolic 70 mmHg Respiratory Rate 18 /min Height 59.75 inches 4'11.75" O2 % BldC Oximetry 98 % 11/30/2007 4:41pm Weight 159.00 lb Heart Rate 68 /min BP Systolic 126 mmHg BP Diastolic 80 mmHg Respiratory Rate 16 /min Height 60 inches 5'0" 07/21/2007 4:10pm Weight 157.00 lb Heart Rate 80 /min BP Systolic 120 mmHg BP Diastolic 80 mmHg Respiratory Rate 16 /min Height 60 inches 5'0" 06/29/2007 3:55pm Body Temperature 98.6 F Weight 158.00 lb Heart Rate 60 /min BP Systolic 110 mmHg BP Diastolic 90 mmHg Respiratory Rate 18 /min Height 60 inches 5'0" 04/18/2007 9:08am Weight 155.00 lb Heart Rate 72 /min BP Systolic 120 mmHg BP Diastolic 80 mmHg Height 60 inches 5'0" 03/13/2007 4:27pm Weight 156.00 lb Heart Rate 72 /min BP Systolic 136 mmHg BP Diastolic 76 mmHg Respiratory Rate 18 /min Height 60 inches 5'0" 02/20/2007 4:23pm Weight 156.00 lb Heart Rate 76 /min BP Systolic 126 mmHg BP Diastolic 72 mmHg Respiratory Rate 16 /min Height 60 inches 5'0" 11/27/2006 4:02pm Weight 155.00 lb Heart Rate 76 /min BP Systolic 104 mmHg BP Diastolic 78 mmHg Respiratory Rate 16 /min Height 60 inches 5'0" 11/07/2006 1:06pm Weight 158.00 lb Heart Rate 76 /min BP Systolic 116 mmHg BP Diastolic 76 mmHg Respiratory Rate 16 /min Height 60 inches 5'0" 08/12/2006 2:36pm Weight 165.00 lb Heart Rate 88 /min BP Systolic 106 mmHg BP Diastolic 68 mmHg Respiratory Rate 16 /min Height 60 inches 5'0" 02/07/2006 4:25pm Height 60 inches 5'0" 02/07/2006 4:27pm Weight 167.00 lb Heart Rate 78 /min BP Systolic 124 mmHg BP Diastolic 70 mmHg Respiratory Rate 20 /min Height 60 inches 5'0" 10/10/2005 2:42pm Height 60 inches 5'0" 10/10/2005 2:43pm Body Temperature 98.1 F Heart Rate 72 /min BP Systolic 120 mmHg BP Diastolic 70 mmHg Respiratory Rate 18 /min Height 60 inches 5'0" 07/25/2005 2:32pm Weight 167.00 lb Heart Rate 70 /min BP Systolic 120 mmHg BP Diastolic 80 mmHg Respiratory Rate 20 /min Height 60 inches 5'0" 04/25/2005 2:47pm Weight 165.00 lb Heart Rate 80 /min BP Systolic 118 mmHg BP Diastolic 78 mmHg Respiratory Rate 18 /min Height 60 inches 5'0" 01/18/2005 3:21pm Weight 174.00 lb Heart Rate 70 /min BP Systolic 110 mmHg BP Diastolic 70 mmHg Respiratory Rate 18 /min Height 60 inches 5'0" Results Test Date Facility Test Result H/L Range Note Basic (BMP) 01/22/2019 [facility] Sodium 143 mmol/L 135-146 1, 2 Potassium 4.5 mmol/L 3.5-5.2 Chloride# 107 mmol/L 97-110 3 Carbon Dioxide 26 mmol/L 24-34 Glucose 97 mg/dL 70-105 BUN 15 mg/dL 6-26 Creatinine 0.8 mg/dL 0.5-1.4 Calcium 9.5 mg/dL 8.5-10.5 4 Female Egfr 97 >60 5 Male Egfr 112 >60 6 Anion Gap 10 mmol/L 5-15 7 Lipid Treatment 01/22/2019 [facility] Cholesterol 158 mg/dL 50-199 Triglycerides 110 mg/dL 30-200 HDL 49 mg/dL 35-85 8 Chol/ HDL Ratio 3.2 ratio Low 3.7-5.6 VLDL 22 mg/dL 2-29 LDL (Calc) 87 mg/dL 20-99 9 Alt 15 U/L 3-42 Ast 13 U/L 8-42 Laboratory test finding 01/22/2019 [facility] TSH 1.05 uIU/mL 0.35-4.94 CBC with Auto Diff-fcmg 01/22/2019 [facility] WBC 6.7 K/uL 4.1-11.0 RBC 4.59 M/uL 4.00-5.40 Hemoglobin 13.3 gm/dL 12.0-16.0 Hematocrit 40.0 % 36.0-47.0 MCV 87.1 fL 80.0-97.0 MCH 29.0 pg 27.0-32.0 MCHC 33.3 g/dL 32.0-36.0 RDW 13.3 % 11.5-14.5 PLT Count 336 K/ul 140-400 MPV 7.9 FL 7.1-10.7 Neutrophil 50.8 % 35.0-75.0 Lymphocyte 39.4 % 16.0-52.0 Monocyte 5.7 % 2.0-10.0 Eosinophil 3.4 % 0.0-5.0 Basophil 0.7 % 0.0-4.0 Abs Neutrophils 3.4 K/uL 2.1-8.0 Abs Lymphocytes 2.6 K/uL 0.8-5.5 Abs Monocytes 0.4 K/uL 0.1-1.0 Abs Eosinophils 0.2 K/uL 0.0-0.5 Abs Basophils 0.0 K/uL 0.0-0.3 Urinalysis With 08/26/2018 [facility] Urine Color YELLOW Yellow 10 Microscopic (315)- - Urine Clarity CLEAR Clear Urine Glucose - Dipstick NEGATIVE mg/dL Negative Urine Bilirubin - Dipstick NEGATIVE Negative Urine Ketone NEGATIVE mg/dL Negative Urine Specific [place] 1.025 N 1.010-1.030 Urine Blood MODERATE Abnormal Negative Urine PH 5.5 Low 6.5-7.5 Urine Protein - Dipstick NEGATIVE mg/dL Negative Urine Urobilinogen - Dipstick 0.2 E.U./dL N 0.2-1.0 Urine Nitrite - Dipstick NEGATIVE Negative Urine Leuk Esterase NEGATIVE Negative Urine RBC 0-2 rbc/hpf 0-2 Urine WBC 0-2 wbc/hpf 0-7 Urine Epithelial Cells MANY /lpf None Seen 11 Urine Bacteria VERY FEW None Seen Urine Amorph Sediment MODERATE Negative Source: URINE, CLEAN CAT <SEE NOTE> 12 CBS W/Automated Diff 08/26/2018 [facility] White Blood 8.7 K/uL N 3.1-10.7 (315)- - Count Red Blood Count 4.58 M/uL N 3.90-5.40 Hemoglobin 13.6 gm/dL N 11.6-15.8 Hematocrit 41.3 % N 36.0-46.1 Mean Cell Volume 90.2 fl N 80.9-99.0 Mean Corpuscular HGB 29.7 pg N 25.9-32.7 Mean Corpuscular HGB Conc 32.9 g/dL N 30.8-34.3 Platelet Count 315 K/uL N 155-360 Red Cell Distri Width SD 43.6 fl N 3-47 Red Cell Distri Width %CV 13.5 % N 11.7-14.4 Mean Platelet Volume 9.5 fL N 8.9-12.4 Neut% 64.7 % N 40.4-72.8 Lymph % 28.5 % N 20.0-42.0 [place] % 5.2 % N 4.3-13.2 Eo% 1.4 % N 0.0-6.6 Bas% 0.2 % N 0.0-1.1 Neut# 5.64 K/uL N 1.8-7.0 Lymph # 2.48 K/uL N 1.0-4.0 [place] # 0.45 K/uL N 0.3-0.9 Eos # 0.12 K/uL N 0.0-0.5 Baso # 0.02 K/uL N 0.0-0.1 Comprehensive Met Panel-FCM 07/28/2018 [facility] Sodium 142 mmol/L 135- 146 13, 14 Potassium 4.2 mmol/L 3.5-5.2 Chloride# 108 mmol/L 97-110 15 Carbon Dioxide 23 mmol/L Low 24-34 Glucose 108 mg/dL High 70-105 BUN 16 mg/dL 6-26 Creatinine 0.7 mg/dL 0.5-1.4 Calcium 9.2 mg/dL 8.5-10.2 Total Protein 6.0 g/dL 6.0-8.0 Albumin 4.0 g/dL 3.6-4.9 Globulin 2.0 g/dL 2.0-3.5 A/G Ratio 2.0 Ratio 1.0-2.2 Total Bilirubin 0.3 mg/dL 0.1-1.3 Alkaline Phosphatase 101 U/L 24-140 Alt 13 U/L 3-42 Ast 11 U/L 8-42 Joanna Egfr >60 >60 16 Non Joanna Egfr >60 >60 17 Anion Gap 11 mmol/L 5-15 18 Lipid 07/28/2018 [facility] Cholesterol 166 mg/dL 50-199 Triglycerides 102 mg/dL 30-200 HDL 51 mg/dL 35-85 19 Chol/ HDL Ratio 3.3 ratio Low 3.7-5.6 VLDL 20 mg/dL 2-29 LDL (Calc) 95 mg/dL 20-99 20 Comprehensive Met Panel-[facility]CMG 01/29/2018 [facility] Sodium 140 mmol/L 135- 146 21, 22 Potassium 4.4 mmol/L 3.5-5.2 Chloride# 104 mmol/L 97-110 23 Carbon Dioxide 24 mmol/L 24-34 Glucose 97 mg/dL 70-105 BUN 19 mg/dL 6-26 Creatinine 0.8 mg/dL 0.5-1.4 Calcium 9.5 mg/dL 8.5-10.2 Total Protein 6.8 g/dL 6.0-8.0 Albumin 4.2 g/dL 3.6-4.9 Globulin 2.6 g/dL 2.0-3.5 A/G Ratio 1.6 Ratio 1.0-2.2 Total Bilirubin 0.5 mg/dL 0.1-1.3 Alkaline Phosphatase 94 U/L 24-140 Alt 13 U/L 3-42 Ast 11 U/L 8-42 Joanna Egfr >60 >60 24 Non Joanna Egfr >60 >60 25 Anion Gap 12 mmol/L 5-15 26 CBC with Auto Diff-fcmg 01/29/2018 [facility] WBC 9.4 K/uL 4.1-11.0 RBC 4.67 M/uL 4.00-5.40 Hemoglobin 13.8 gm/dL 12.0-16.0 Hematocrit 40.5 % 36.0-47.0 MCV 86.9 fL 80.0-97.0 MCH 29.6 pg 27.0-32.0 MCHC 34.0 g/dL 32.0-36.0 RDW 13.4 % 11.5-14.5 PLT Count 345 K/ul 140-400 MPV 7.5 FL 7.1-10.7 Neutrophil 66.7 % 35.0-75.0 Lymphocyte 24.6 % 16.0-52.0 Monocyte 6.1 % 2.0-10.0 Eosinophil 2.1 % 0.0-5.0 Basophil 0.5 % 0.0-4.0 Abs Neutrophils 6.2 K/uL 2.1-8.0 Abs Lymphocytes 2.3 K/uL 0.8-5.5 Abs Monocytes 0.6 K/uL 0.1-1.0 Abs Eosinophils 0.2 K/uL 0.0-0.5 Abs Basophils 0.0 K/uL 0.0-0.3 Laboratory test finding 01/29/2018 [facility] TSH 1.72 uIU/mL 0.35-4.94 Lipid 01/29/2018 [facility] Cholesterol 169 mg/dL 50-199 Triglycerides 174 mg/dL 30-200 HDL 62 mg/dL 35-85 27 Chol/ HDL Ratio 2.7 ratio Low 3.7-5.6 VLDL 35 mg/dL High 2-29 LDL (Calc) 73 mg/dL 20-99 28 BUN/Creat/GFR Panel 10/13/2017 [facility] BUN/CR 18 ratio 12-20 Creatinine 0.7 mg/dL 0.5-1.4 Joanna Egfr >60 >60 29 Non Joanna Egfr >60 >60 30 BUN 13 mg/dL 6- Lipid Treatment 09/12/2017 [facility] Cholesterol 159 mg/dL 50-199 31 Triglycerides 170 mg/dL 30-200 HDL 50 mg/dL 35-85 32 Chol/ HDL Ratio 3.2 ratio Low 3.7-5.6 VLDL 34 mg/dL High 2-29 LDL (Calc) 75 mg/dL 20-99 33 Alt 12 U/L 3-42 Ast 11 U/L 8- Lipid Treatment 05/23/2017 [facility] Cholesterol 139 mg/dL 50-199 34 Triglycerides 171 mg/dL 30-200 HDL 43 mg/dL 35-85 35 Chol/ HDL Ratio 3.2 ratio Low 3.7-5.6 VLDL 34 mg/dL High 2-29 LDL (Calc) 62 mg/dL 20-99 36 Alt 10 U/L 3-42 Ast 10 U/L 8- CBC With Auto Diff 05/23/2017 [facility] WBC 7.7 K/uL 4.1-11.0 RBC 4.38 M/uL 4.00-5.40 Hemoglobin 13.0 gm/dL 12.0-16.0 Hematocrit 38.7 % 36.0-47.0 MCV 88.5 fL 80.0-97.0 MCH 29.6 pg 27.0-32.0 MCHC 33.5 g/dL 32.0-36.0 RDW 13.3 % 11.5-14.5 PLT Count 328 K/ul 140-400 Neutrophil 62.6 % 35.0-75.0 Lymphocyte 26.8 % 16.0-52.0 Monocyte 7.4 % 2.0-10.0 Eosinophil 2.7 % 0.0-5.0 Basophil 0.5 % 0.0-4.0 Abs Neutrophils 4.8 K/uL 2.1-8.0 Abs Lymphocytes 2.1 K/uL 0.8-5.5 Abs Monocytes 0.6 K/uL 0.1-1.0 Abs Eosinophils 0.2 K/uL 0.0-0.5 Abs Basophils 0.0 K/uL 0.0-0.3 Basic (BMP) 05/23/2017 [facility] Sodium 141 mmol/L 135-146 37 Potassium 4.4 mmol/L 3.5-5.2 Chloride# 106 mmol/L 97-110 38 Carbon Dioxide 25 mmol/L 24-34 Glucose 93 mg/dL 70-105 BUN 11 mg/dL 6-26 Creatinine 0.8 mg/dL 0.5-1.4 Calcium 9.0 mg/dL 8.5-10.2 Non Joanna Egfr >60 >60 39 Joanna Egfr >60 >60 40 Anion Gap 10 mmol/L 7-16 41 Laboratory test 05/23/2017 [facility] TSH 1.23 uIU/mL 0.35-4.94 finding CBS W/Automated 03/20/2017 [facility] White Blood 10.3 K/ uL N 3.1-10.7 42 Diff (315)- - Count Red Blood Count 4.55 M/uL N 3.90-5.40 Hemoglobin 13.7 gm/dL N 11.6-15.8 Hematocrit 40.1 % N 36.0-46.1 Mean Cell Volume 88.1 fl N 80.9-99.0 Mean Corpuscular HGB 30.1 pg N 25.9-32.7 Mean Corpuscular HGB Conc 34.2 g/dL N 30.8-34.3 Platelet Count 267 K/uL N 150-400 Red Cell Distri Width SD 42.6 fl N 3-47 Red Cell Distri Width %CV 13.5 % N 11.7-14.4 Mean Platelet Volume 10.5 fL N 8.9-12.4 Neut% 62.2 % N 40.4-72.8 Lymph % 26.9 % N 20.0-42.0 Boone % 6.8 % N 4.3-13.2 Eo% 3.7 % N 0.0-6.6 Bas% 0.4 % N 0.0-1.1 Neut# 6.44 K/uL N 1.8-7.0 Lymph # 2.78 K/uL N 1.0-4.0 Boone # 0.70 K/uL N 0.3-0.9 Eos # 0.38 K/uL N 0.0-0.5 Baso # 0.04 K/uL N 0.0-0.1 Laboratory test 03/20/2017 [facility] HCG,Serum NEGATIVE (Negative) finding (315)- - (Qualitative) Laboratory test 03/20/2017 [facility] D-Dimer, < 0.22 ug/ mL 43 finding (315)- - Quantitative CBC With Auto 10/30/2016 [facility] WBC 8.0 K/uL 4.1-11.0 44 Diff RBC 4.67 M/uL 4.00-5.40 Hemoglobin 13.9 gm/dL 12.0-16.0 Hematocrit 40.9 % 36.0-47.0 MCV 87.5 fL 80.0-97.0 MCH 29.7 pg 27.0-32.0 MCHC 33.9 g/dL 32.0-36.0 RDW 13.3 % 11.5-14.5 PLT Count 336 K/ul 140-400 Neutrophil 53.7 % 35.0-75.0 Lymphocyte 32.7 % 16.0-52.0 Monocyte 5.8 % 2.0-10.0 Eosinophil 7.1 % High 0.0-5.0 Basophil 0.7 % 0.0-4.0 Abs Neutrophils 4.3 K/uL 2.1-8.0 Abs Lymphocytes 2.6 K/uL 0.8-5.5 Abs Monocytes 0.5 K/uL 0.1-1.0 Abs Eosinophils 0.6 K/uL High 0.0-0.5 Abs Basophils 0.1 K/uL 0.0-0.3 Comprehensive Metabolic (CMP) 10/30/2016 [facility] Sodium 137 mmol/L 134- 142 Potassium 4.1 mmol/L 3.5-5.2 Chloride 107 mmol/L 97-109 Carbon Dioxide 25 mmol/L 24-34 Glucose 85 mg/dL 70-105 BUN 18 mg/dL 6-26 Creatinine 0.7 mg/dL 0.5-1.4 Calcium 9.0 mg/dL 8.5-10.2 Total Protein 6.6 g/dL 6.0-8.0 Albumin 4.0 g/dL 3.6-4.9 Globulin 2.6 g/dL 2.0-3.5 A/G Ratio 1.5 Ratio 1.0-2.2 Total Bilirubin 0.4 mg/dL 0.1-1.3 Alkaline Phosphatase 76 U/L 24-140 Alt 14 U/L 3-42 Ast 9 U/L 8-42 Anion Gap 9 mmol/L 6-14 Joanna Egfr >60 >60 45 Non Joanna Egfr >60 >60 46 Lipid 10/30/2016 [facility] Cholesterol 245 mg/dL High 50-199 Triglycerides 243 mg/dL High 30-200 HDL 49 mg/dL 35-85 47 Chol/ HDL Ratio 5.0 ratio 3.7-5.6 VLDL 49 mg/dL High 2-29 LDL (Calc) 147 mg/dL High 20-99 48 Laboratory test 08/01/2016 [facility] Troponin-I < 0.015 N 49, 50 finding Lab Dept ng/mL [phone] Basic Metabolic 08/01/2016 [facility] Glucose 82 mg/ dL N 74-106 Panel Lab Dept [phone] BUN 14 mg/dL N 7-18 Creatinine 0.6 mg/dL N 0.6-1.3 Glom Filtration Rate, Estimate >60 mL/min N >60 If >60 mL/min N >60 51 BUN/Creat 23.3 ratio N Sodium 141 mmol/L N 136-145 Potassium 4.6 mmol/L N 3.5-5.1 Chloride 108 mmol/L High 98-107 Carbon Dioxide 26 mmol/L N 21-32 Anion Gap 7 mEq/L Low 8-16 Calcium 8.5 mg/dL N 8.5-10.1 CBS W/Automated 08/01/2016 [facility] White Blood 9.8 K/uL N 3.1-10.7 Diff Lab Dept Count [phone] Red Blood Count 4.69 M/uL N 3.90-5.40 Hemoglobin 14.0 gm/dL N 11.6-15.8 Hematocrit 41.8 % N 36.0-46.1 Mean Cell Volume 89.1 fl N 80.9-99.0 Mean Corpuscular HGB 29.9 pg N 25.9-32.7 Mean Corpuscular HGB Conc 33.5 g/dL N 30.8-34.3 Platelet Count 384 K/uL High 155-360 Red Cell Distri Width SD 41.4 fl N 3-47 Red Cell Distri Width %CV 13.0 % N 11.7-14.4 Mean Platelet Volume 9.6 fL N 8.9-12.4 Neut% 61.8 % N 40.4-72.8 Lymph % 27.2 % N 17.0-46.1 Boone % 7.9 % N 4.3-13.2 Eo% 2.6 % N 0.0-6.6 Bas% 0.5 % N 0.0-1.1 Neut# 6.06 K/uL N 1.8-7.0 Lymph # 2.67 K/uL N 1.8-7.0 Boone # 0.78 K/uL N 0.3-0.9 Eos # 0.26 K/uL N 0.0-0.5 Baso # 0.05 K/uL N 0.0-0.1 Laboratory 08/01/2016 [facility] Sedimentation 8 mm/ hr N 0-20 52 test finding Lab Dept Rate [phone] Laboratory 01/24/2016 [facility] Urine Culture Microbiology 53 test finding res <SEE NOTE> Urine 01/24/2016 [facility] Urine WBC 0.5 [HPF] (0-8) Microscopic-On ly Urine RBC 3.3 [HPF] High (0-3) Epithelial Cells NEGATIVE [HPF] (Neg) Bacteria NEGATIVE [HPF] (Neg) Hyaline Casts 4.59 [LPF] (0-5) 54 Lipid 01/24/2016 [facility] Cholesterol 250 mg/dL High 50-199 55 Triglycerides 181 mg/dL 30-200 HDL 52 mg/dL 35-85 56 Chol/ HDL Ratio 4.8 ratio 3.7-5.6 VLDL 36 mg/dL High 2-29 LDL (Calc) 162 mg/dL High 20-99 57 CBC With Auto Diff 01/24/2016 [facility] WBC 8.1 K/uL 4.1-11.0 RBC 4.90 M/uL 4.00-5.40 Hemoglobin 14.7 gm/dL 12.0-16.0 Hematocrit 43.1 % 36.0-47.0 MCV 88.0 fL 80.0-97.0 MCH 29.9 pg 27.0-32.0 MCHC 34.0 g/dL 32.0-36.0 RDW 13.3 % 11.5-14.5 PLT Count 351 K/ul 140-400 Neutrophil 57.7 % 35.0-75.0 Lymphocyte 32.1 % 16.0-52.0 Monocyte 5.9 % 2.0-10.0 Eosinophil 3.5 % 0.0-5.0 Basophil 0.8 % 0.0-4.0 Abs Neutrophils 4.7 K/uL 2.1-8.0 Abs Lymphocytes 2.6 K/uL 0.8-5.5 Abs Monocytes 0.5 K/uL 0.1-1.0 Abs Eosinophils 0.3 K/uL 0.0-0.5 Abs Basophils 0.1 K/uL 0.0-0.3 Comprehensive Metabolic (CMP) 01/24/2016 [facility] Sodium 138 mmol/L 134- 142 Potassium 4.9 mmol/L 3.5-5.2 Chloride 106 mmol/L 97-109 Carbon Dioxide 26 mmol/L 24-34 Glucose 88 mg/dL 70-105 BUN 16 mg/dL 6-26 Creatinine 0.6 mg/dL 0.5-1.4 Calcium 9.4 mg/dL 8.5-10.2 Total Protein 6.8 g/dL 6.0-8.0 Albumin 4.1 g/dL 3.6-4.9 Globulin 2.7 g/dL 2.0-3.5 A/G Ratio 1.5 Ratio 1.0-2.2 Total Bilirubin 0.3 mg/dL 0.1-1.3 Alkaline Phosphatase 80 U/L 24-140 Alt 14 U/L 3-42 Ast 13 U/L 8-42 Anion Gap 11 mmol/L 6-14 Joanna Egfr >60 >60 58 Non Joanna Egfr >60 >60 59 Laboratory test finding 01/24/2016 [facility] TSH 1.02 uIU/mL 0.35-4.94 CBC With Auto Diff 04/06/2015 [facility] WBC 7.1 K/uL 4.1-11.0 RBC 4.53 M/uL 4.00-5.40 Hemoglobin 13.5 gm/dL 12.0-16.0 Hematocrit 40.5 % 36.0-47.0 MCV 89.5 fL 80.0-97.0 MCH 29.8 pg 27.0-32.0 MCHC 33.3 g/dL 32.0-36.0 RDW 13.8 % 11.5-14.5 PLT Count 352 K/ul 140-400 Neutrophil 50.7 % 35.0-75.0 Lymphocyte 39.9 % 16.0-52.0 Monocyte 5.4 % 2.0-10.0 Eosinophil 3.8 % 0.0-5.0 Basophil 0.2 % 0.0-4.0 Abs Neutrophils 3.6 K/uL 2.1-8.0 Abs Lymphocytes 2.8 K/uL 0.8-5.5 Abmon 0.4 K/uL 0.1-1.0 Abs Eosinophils 0.3 K/uL 0.0-0.5 Abs Basophils 0.0 K/uL 0.0-0.3 Comprehensive Metabolic (CMP) 04/06/2015 [facility] Sodium 139 mmol/L 134- 142 Potassium 5.1 mmol/L 3.5-5.2 Chloride 107 mmol/L 97-109 Carbon Dioxide 26 mmol/L 24-34 Glucose 87 mg/dL 70-105 BUN 15 mg/dL 6-26 Creatinine 0.6 mg/dL 0.5-1.4 Calcium 9.4 mg/dL 8.5-10.2 Total Protein 7.0 g/dL 6.0-8.0 Albumin 4.3 g/dL 3.6-4.9 Globulin 2.7 g/dL 2.0-3.5 A/G Ratio 1.6 Ratio 1.0-2.2 Total Bilirubin 0.3 mg/dL 0.1-1.3 Alkaline Phosphatase 76 U/L 24-140 Alt 12 U/L 3-42 Ast 12 U/L 8-42 Anion Gap 11 mmol/L 6-14 Joanna Egfr >60 >60 60 Non Joanna Egfr >60 >60 61 Laboratory test finding 01/02/2015 [facility] SEE NOTE 62 CBC With Auto Diff 12/14/2014 [facility] WBC 8.5 K/uL 4.1-11.0 RBC 4.61 M/uL 4.00-5.40 Hemoglobin 13.5 gm/dL 12.0-16.0 Hematocrit 40.6 % 36.0-47.0 MCV 88.0 fL 80.0-97.0 MCH 29.3 pg 27.0-32.0 MCHC 33.3 g/dL 32.0-36.0 RDW 14.1 % 11.5-14.5 PLT Count 409 K/ul High 140-400 Neutrophil 63.8 % 35.0-75.0 Lymphocyte 27.5 % 16.0-52.0 Monocyte 5.6 % 2.0-10.0 Eosinophil 2.0 % 0.0-5.0 Basophil 1.1 % 0.0-4.0 Abs Neutrophils 5.4 K/uL 2.1-8.0 Abs Lymphocytes 2.3 K/uL 0.8-5.5 Abmon 0.5 K/uL 0.1-1.0 Abs Eosinophils 0.2 K/uL 0.0-0.5 Abs Basophils 0.1 K/uL 0.0-0.3 Comprehensive Metabolic (CMP) 12/14/2014 [facility] Sodium 140 mmol/L 134- 142 Potassium 5.1 mmol/L 3.5-5.2 Chloride 106 mmol/L 97-109 Carbon Dioxide 27 mmol/L 24-34 Glucose 77 mg/dL 70-105 BUN 17 mg/dL 6-26 Creatinine 0.8 mg/dL 0.5-1.4 Calcium 9.7 mg/dL 8.5-10.2 Total Protein 6.9 g/dL 6.0-8.0 Albumin 4.3 g/dL 3.6-4.9 Globulin 2.6 g/dL 2.0-3.5 A/G Ratio 1.7 Ratio 1.0-2.2 Total Bilirubin 0.3 mg/dL 0.1-1.3 Alkaline Phosphatase 82 U/L 24-140 Alt 11 U/L 3-42 Ast 10 U/L 8-42 Anion Gap 12 mmol/L 6-14 Joanna Egfr >60 >60 63 Non Joanna Egfr >60 >60 64 Laboratory test 12/14/2014 [facility] TSH 0.94 uIU/mL 0.34-5.60 finding Laboratory test 09/29/2014 [facility] Prolactin 13.4 ng/ mL 65 finding (315)- - HCG, Quant < 1.0 mIU/mL 66 Estradiol,Serum 199.2 pg/mL 67 Laboratory test finding 07/14/2014 N2N/CCD Import BUN 17 mg/dL 7-18 68 Creatinine 0.7 mg/dL 0.6-1.3 69 Laboratory test 11/25/2013 N2N/CCD Import Thyroid Stim 1.60 uIU/mL 0.49- 4.67 finding Hormone Laboratory test 11/24/2013 N2N/CCD Import % Baso. 0.6 % 0.0-2.0 finding % Eos. 2.0 % 0.0-4.0 % Lymph 28 % 20-44 % Boone 8.3 % 2.0-10.0 % Grisel 61 % 50-70 Absolute Baso. 0.1 K/ul 0.0-0.3 Absolute Eos. 0.2 K/ul 0.0-0.5 Absolute Lymph. 2.3 K/ul 0.8-4.8 Absolute Boone. 0.7 K/ul 0.1-1.0 Absolute Grisel. 5.15 K/ul 2.05-7.63 BUN 19.0 mg/dL High 7.0-18.0 BUN/Creat Ratio 27.1 ratio High 12.0-20.0 Calcium 9.7 mg/dL 8.7-10.5 Chloride 108.0 mmol/L High 98.0-107.0 Co2 23.0 mmol/L 22.0-30.0 Creatinine-Serum 0.7 mg/dL 0.7-1.2 Glucose 93.0 mg/dL 75.0-110.0 HCT 42.9 % 37.0-51.0 HGB 13.3 Gm/dl 12.0-16.0 MCH 26.8 pg 26.0-32.0 MCHC 31.1 g/dL 31.0-36.0 MCV 86.3 Fl 80.0-97.0 MPV 6.0 fL 6.0-10.0 PLT 397 K/ul 140-440 Potasium 3.8 mmol/L 3.6-5.0 RBC 5.0 M/ul 4.2-6.3 RDW 13.0 % 11.5-14.5 Sodium 142.0 mmil/L 137.0-145.0 WBC 8.4 K/ul 4.1-10.9 eGFR 99.5 Lipid Panel 11/24/2013 N2N/CCD Import Chol/HDL Ratio 5.1 ratio Cholesterol 253.0 mg/dL High 50.0-199.0 HDL 50.0 mg/dL 29.0-86.0 LDL, Calculated 156.6 mg/dL High 20.0-129.0 Triglycerides 232.0 mg/dL 30.0-249.0 vLDL 46.4 ng/dL Laboratory test finding 11/24/2013 N2N/CCD Import [id number] See Note 70 Throat Culture Complete See Note 71 Urine 11/24/2013 N2N/CCD Import Microalb/Creat 12.5 0.0-30.0 Microalbumin/Creat Ratio ug/ngcrt Urine Creatinine 177.8 mg/dL Urine Microalbumin 22.2 mg/L High <18.5 Laboratory test finding 11/24/2013 N2N/CCD Import [id number] See Note 72 Throat Culture Complete See Note 73 Urine 11/24/2013 N2N/CCD Import Microalb/Creat 12.5 0.0-30.0 Microalbumin/Creat Ratio ug/ngcrt Urine Creatinine 177.8 mg/dL Urine Microalbumin 22.2 mg/L High <18.5 Laboratory test 03/12/2012 N2N/CCD Import Culture Throat See Note 74 finding Laboratory test 06/14/2011 N2N/CCD Import A/G Ratio 1.3 1.0-2.2 75 finding Absolute Basophils 0.079 K/ul 0.0-0.3 Absolute Eosinophils 0.292 K/ul 0.0-0.5 Absolute Lymphocytes 3.13 K/ul 0.8-4.8 Absolute Monocytes 0.657 K/ul 0.1-1.0 Absolute Neutrophils 5.93 K/ul 2.05-7.63 Albumin 4.0 g/dL 3.5-5.0 Alkaline Phosphatase 93 U/L 30-126 Alt 21 U/L 9-52 Ast 15 U/L 14-36 BUN 15 mg/dL 7-18 BUN/CR Ratio 22.2 Ratio High 12-20 Basophil 0.8 % 0-2 Calcium 9.5 mg/dL 8.7-10.5 Carbon Dioxide 26 mmol/L 22-30 Chloride 105 mmol/L 98-107 Creatinine, Serum 0.7 mg/dL 0.7-1.2 Eosinophil 2.9 % 0-4 Globulin 3.0 g/dL 2.7-4.3 Glucose 100 mg/dL 65-105 Hematocrit 42.2 % 37.0-51.0 Hemoglobin 13.8 GM/dl 12.0-16.0 Lymphocytes 31.0 % 20-44 MCH 29.0 pg 26.0-32.0 MCHC 32.7 g/dL 31.0-36.0 MCV 89 FL 80-97 Monocytes 6.5 % 2-10.0 Neutrophils 58.8 % 50-70 Platelet Count 395 K/ul 140-440 Potassium 4.0 mmol/L 3.6-5.0 RBC 4.74 M/ul 4.2-6.3 RDW 11.8 % 11.5-14.5 Sodium 142 mmol/L 137-145 TSH 0.819 uIU/ml 0.50-6.00 Total Bilirubin 0.4 mg/dL 0.2-1.3 Total Protein 7.0 g/dL 6.3-8.2 WBC 10.1 K/ul 4.1-10.9 Laboratory test finding 05/24/2011 N2N/CCD Import Ekaterina Species See Note 76 Gardnerella Vaginalis See Note 77 Trichomonas Vaginalis See Note 78 Cytology Pap See Note 79 Laboratory test finding 05/24/2011 N2N/CCD Import Cytology Pap See Note 80 Laboratory test finding 12/17/2010 N2N/CCD Import Anion Gap 14 mmol/L 10 -20 81 BUN 15 mg/dL 7-18 BUN/CR Ratio 24.0 Ratio High 12-20 Calcium 9.1 mg/dL 8.7-10.5 Carbon Dioxide 25 mmol/L 22-30 Chloride 107 mmol/L 98-107 Creatinine, Serum 0.6 mg/dL Low 0.7-1.2 Glucose 108 mg/dL High 65-105 Potassium 4.0 mmol/L 3.6-5.0 Sodium 142 mmol/L 137-145 Laboratory test finding 05/27/2010 N2N/CCD Import Appearance (Tube 1) Clear Appearance (Tube 4) Clear CSF Culture See Note 82 CSF Diff Comment Tube 1 Tube #1 CSF Diff Comment Tube 4 Tube # 4 CSF Glucose 59 mg/dL 50-75 83 CSF Rbc (Tube 1) 202 /mm3 High -0 CSF Rbc (Tube 4) 1 /mm3 High -0 CSF Total Protein 26.8 mg/dL 15.0-45.0 84 CSF Wbc (Tube 1) 0 /mm3 0-5 CSF Wbc (Tube 4) 0 /mm3 0-5 Color (Tube 1) Colorless Color (Tube 4) Colorless Gram Stain See Note 85 Alb/Glob 1.0 Albumin 3.7 g/dL 3.5-5.0 Alkaline Phosphatase 110 U/L 50-136 Anion Gap 14 mEq/L 8-16 BUN 12 mg/dL 5-23 BUN/Creat 17.1 Bas% 0.3 % 0.0-1.1 Baso # 0.0 K/uL 0.0-0.1 Bilirubin,Total 0.3 mg/dL 0.2-1.2 Calcium 8.6 mg/dL 8.5-10.1 Carbon Dioxide 24 mEq/L 21-32 Chloride 108 mEq/L High 98-107 Creatinine 0.7 mg/dL 0.5-1.4 Eo% 2.6 % 0.0-6.6 Eos # 0.3 K/uL 0.0-0.5 Globulin 3.6 gm/dL 1.9-4.3 Glom Filtration Rate, Estimate >60 mL/min >60 Glucose 93 mg/dL 76-115 Hematocrit 41.3 % 36.0-46.1 Hemoglobin 14.2 gm/dL 11.6-15.8 If >60 mL/min >60 86 Lymph # 3.8 K/uL High 0.8-3.4 Lymph % 31.0 % 17.0-46.1 Magnesium 1.7 mg/dL 1.7-2.3 87 Mean Cell Volume 87.1 fl 80.9-99.0 Mean Corpuscular HGB 30.0 pg 25.9-32.7 Mean Corpuscular HGB Conc 34.4 g/dL High 30.8-34.3 Mean Platelet Volume 9.5 fL 8.9-12.4 [place] # 0.8 K/uL 0.3-0.9 [place] % 6.2 % 4.3-13.2 Neut# 7.3 K/uL High 1.0-7.0 Neut% 59.9 % 40.4-72.8 Platelet Count 355 K/uL 155-360 Potassium 4.1 mEq/L 3.5-5.1 Red Blood Count 4.74 M/uL 3.90-5.40 Red Cell Distri Width %CV 13.0 % 11.7-14.4 Red Cell Distri Width SD 41 fl 3-47 SGPT/Alt 27 U/L Low 30-65 Sgot/Ast 8 U/L Low 16-40 Sodium 142 mEq/L 136-145 Total Protein 7.3 g/dL 6.3-8.0 White Blood Count 12.1 K/uL High 3.1-10.7 Laboratory test finding 05/27/2010 N2N/CCD Import Alb/Glob 1.0 Albumin 3.7 g/dL 3.5-5.0 Alkaline Phosphatase 110 U/L 50-136 Anion Gap 14 mEq/L 8-16 BUN 12 mg/dL 5-23 BUN/Creat 17.1 Bas% 0.3 % 0.0-1.1 Baso # 0.0 K/uL 0.0-0.1 Bilirubin,Total 0.3 mg/dL 0.2-1.2 Calcium 8.6 mg/dL 8.5-10.1 Carbon Dioxide 24 mEq/L 21-32 Chloride 108 mEq/L High 98-107 Creatinine 0.7 mg/dL 0.5-1.4 Eo% 2.6 % 0.0-6.6 Eos # 0.3 K/uL 0.0-0.5 Globulin 3.6 gm/dL 1.9-4.3 Glom Filtration Rate, Estimate >60 mL/min >60 Glucose 93 mg/dL 76-115 Hematocrit 41.3 % 36.0-46.1 Hemoglobin 14.2 gm/dL 11.6-15.8 If >60 mL/min >60 88 Lymph # 3.8 K/uL High 0.8-3.4 Lymph % 31.0 % 17.0-46.1 Magnesium 1.7 mg/dL 1.7-2.3 89 Mean Cell Volume 87.1 fl 80.9-99.0 Mean Corpuscular HGB 30.0 pg 25.9-32.7 Mean Corpuscular HGB Conc 34.4 g/dL High 30.8-34.3 Mean Platelet Volume 9.5 fL 8.9-12.4 Boone # 0.8 K/uL 0.3-0.9 [place] % 6.2 % 4.3-13.2 Neut# 7.3 K/uL High 1.0-7.0 Neut% 59.9 % 40.4-72.8 Platelet Count 355 K/uL 155-360 Potassium 4.1 mEq/L 3.5-5.1 Red Blood Count 4.74 M/uL 3.90-5.40 Red Cell Distri Width %CV 13.0 % 11.7-14.4 Red Cell Distri Width SD 41 fl 3-47 SGPT/Alt 27 U/L Low 30-65 Sgot/Ast 8 U/L Low 16-40 Sodium 142 mEq/L 136-145 Total Protein 7.3 g/dL 6.3-8.0 White Blood Count 12.1 K/uL High 3.1-10.7 Laboratory test 01/16/2009 N2N/CCD Import Cytology Pap See Note 90 finding Laboratory test 01/05/2009 N2N/CCD Import Absolute 0.085 K/ul 0.0-0.3 91 finding Basophils Absolute Eosinophils 0.310 K/ul 0.0-0.5 Absolute Lymphocytes 3.01 K/ul 0.8-4.8 Absolute Monocytes 0.573 K/ul 0.1-1.0 Absolute Neutrophils 3.83 K/ul 2.05-7.63 Anion Gap 12 mmol/L 10-20 BUN 16 mg/dL 7-18 BUN/CR Ratio 23.7 Ratio High 12-20 Basophil 1.1 % 0-2 Calcium 10.0 mg/dL 8.7-10.5 Carbon Dioxide 25 mmol/L 22-30 Chloride 109 mmol/L High 98-107 Creatinine, Serum 0.7 mg/dL 0.7-1.2 Eosinophil 4.0 % 0-4 Glucose 86 mg/dL 65-105 Hematocrit 39.8 % 37.0-51.0 Hemoglobin 13.8 GM/dl 12.0-16.0 Lymphocytes 38.5 % 20-44 MCH 29.9 pg 26.0-32.0 MCHC 34.5 g/dL 31.0-36.0 MCV 87 FL 80-97 Monocytes 7.3 % 2-10.0 Neutrophils 49.1 % Low 50-70 Platelet Count 362 K/ul 140-440 Potassium 4.2 mmol/L 3.6-5.0 RBC 4.60 M/ul 4.2-6.3 RDW 11.3 % Low 11.5-14.5 Sodium 141 mmol/L 137-145 TSH 0.689 uIU/ml 0.50-6.00 WBC 7.8 K/ul 4.1-10.9 Lipid Panel 01/05/2009 N2N/CCD Import Chol/HDL Ratio 4.5 92 Cholesterol 229 mg/dL High 50-199 HDL Cholesterol 50 mg/dL 29-86 LDL 158 mg/dL High 20-129 Triglycerides 106 mg/dL 30-249 VLDL Cholesterol 21 mg/dL Laboratory test 12/15/2008 N2N/CCD Import Culture Throat Normal Throat 93 finding FL <See Note> Laboratory test 11/30/2007 N2N/CCD Import Cytology Pap See Note 94 finding LDL Cholesterol 11/26/2007 N2N/CCD Import Cholesterol 206 mg/dL High 120- 20 Profile 0 HDL Cholesterol 45 mg/dL 32-96 LDL-Cholesterol 141 mg/dL 62-185 Triglycerides 102 mg/dL 0-210 Laboratory test finding 11/26/2007 N2N/CCD Import Anion Gap 11 mEq/L 8- 16 BUN 13 mg/dL 5-23 BUN/Creat 21.6 Calcium 9.1 mg/dL 8.5-10.1 Carbon Dioxide 28 mEq/L 21-32 Chloride 106 mEq/L 98-107 Creatinine 0.6 mg/dL 0.5-1.4 Glucose 91 mg/dL 76-115 Hematocrit 39.6 % 36.0-46.1 Hemoglobin 13.5 gm/dL 11.6-15.8 Mean Cell Volume 87.6 fl 80.9-99.0 Mean Corpuscular HGB 29.9 pg 25.9-32.7 Mean Corpuscular HGB Conc 34.1 g/dL 30.8-34.3 Mean Platelet Volume 9.9 fL 8.9-12.4 Platelet Count 337 K/uL 155-360 Potassium 4.2 mEq/L 3.5-5.1 Red Blood Count 4.52 M/uL 3.90-5.40 Red Cell Distri Width %CV 12.6 % 11.7-14.4 Sodium 141 mEq/L 136-145 Thyroid Stim Hormone 0.78 uIU/mL 0.49-4.67 White Blood Count 7.3 K/uL 3.1-10.7 Laboratory test finding 04/15/2007 N2N/CCD Import BUN 14 mg/dL 5-23 Creatinine 0.7 mg/dL 0.5-1.4 Lipid Panel 01/29/2007 N2N/CCD Import Chol/HDL Ratio 4.2 95, 96 Cholesterol 182 mg/dL 50-199 HDL Cholesterol 43 mg/dL 29-86 LDL 114 mg/dL 20-129 Triglycerides 127 mg/dL 30-249 VLDL Cholesterol 25 mg/dL Laboratory test 01/29/2007 N2N/CCD Import Absolute Basophils 0.06 K/ul 0.0-0.3 finding Absolute Eosinophils 0.34 K/ul 0.0-0.5 Absolute Lymphocytes 2.23 K/ul 0.8-4.8 Absolute Monocytes 0.55 K/ul 0.1-1.0 Absolute Neutrophils 6.07 K/ul 2.05-7.63 Anion Gap 12 mmol/L 10-20 BUN 12 mg/dL 7-18 BUN/CR Ratio 16.1 Ratio 12-20 Basophil 0.6 % 0-2 Calcium 9.5 mg/dL 8.7-10.5 Carbon Dioxide 23 mmol/L 22-30 Chloride 111 mmol/L High 98-107 Creatinine, Serum 0.7 mg/dL 0.7-1.2 Eosinophil 3.7 % 0-4 Glucose 89 mg/dL 65-105 Hematocrit 40.5 % 37.0-51.0 Hemoglobin 13.7 GM/dl 12.0-16.0 Lymphocytes 24.1 % 20-44 MCH 30.6 pg 26.0-32.0 MCHC 33.8 g/dL 31.0-36.0 MCV 91 FL 80-97 Monocytes 6.0 % 2-10.0 Neutrophils 65.6 % 50-70 Platelet Count 354 K/ul 140-440 Potassium 4.3 mmol/L 3.6-5.0 RBC 4.47 M/ul 4.2-6.3 RDW 11.2 % Low 11.5-14.5 Sodium 142 mmol/L 137-145 TSH 0.831 uIU/ml 0.50-6.00 WBC 9.3 K/ul 4.1-10.9 Laboratory test finding 11/27/2006 N2N/CCD Import Cytology Pap See Note 97 Lipid Panel 11/06/2006 N2N/CCD Import Chol/HDL Ratio 5.3 98, 99 Cholesterol 213 mg/dL High 50-199 HDL Cholesterol 40 mg/dL 29-86 LDL 146 mg/dL High 20-129 Triglycerides 135 mg/dL 30-249 VLDL Cholesterol 27 mg/dL Lipid Panel 08/05/2006 N2N/CCD Import Chol/HDL Ratio 4.4 100, 101 Cholesterol 217 mg/dL High 50-199 HDL Cholesterol 49 mg/dL 29-86 LDL 113 mg/dL 20-129 Triglycerides 273 mg/dL High 30-249 VLDL Cholesterol 55 mg/dL Laboratory test 08/05/2006 N2N/CCD Import Absolute Basophils 0.05 K/ul 0.0-0.3 finding Absolute Eosinophils 0.21 K/ul 0.0-0.5 Absolute Lymphocytes 3.05 K/ul 0.8-4.8 Absolute Monocytes 0.54 K/ul 0.1-1.0 Absolute Neutrophils 4.93 K/ul 2.05-7.63 Anion Gap 10 mmol/L 10-20 BUN 13 mg/dL 7-18 BUN/CR Ratio 18.4 Ratio 12-20 Basophil 0.6 % 0-2 Calcium 9.2 mg/dL 8.7-10.5 Carbon Dioxide 27 mmol/L 22-30 Chloride 107 mmol/L 98-107 Creatinine, Serum 0.7 mg/dL 0.7-1.2 Eosinophil 2.4 % 0-4 Glucose 102 mg/dL 65-105 Hematocrit 39.5 % 37.0-51.0 Hemoglobin 13.8 GM/dl 12.0-16.0 Lymphocytes 34.7 % 20-44 MCH 30.1 pg 26.0-32.0 MCHC 34.9 g/dL 31.0-36.0 MCV 86 FL 80-97 Monocytes 6.2 % 2-10.0 Neutrophils 56.1 % 50-70 Platelet Count 342 K/ul 140-440 Potassium 3.9 mmol/L 3.6-5.0 RBC 4.58 M/ul 4.2-6.3 RDW 11.3 % Low 11.5-14.5 Sodium 140 mmol/L 137-145 TSH 1.099 uIU/ml 0.50-6.00 WBC 8.8 K/ul 4.1-10.9 1 6 mos 2 Updated reference range on new analyzer 3 Updated reference range on new analyzer 4 Updated reference range 01-13-2019 5 Concerning GFR Guidelines for Americans: Normal function or mild renal disease, if clinically at risk: >/=60 mL/min Moderately decreased: 30-59 Severely decreased: 15-29 Renal failure: <15 There is reduced accuracy above 60ml/min/1.73 m squared, but the numeric value may be clinically useful in the near 60 range 6 Concerning GFR Guidelines: Normal function or mild renal disease, if clinically at risk: >/=60 mL/min Moderately decreased: 30-59 Severely decreased: 15-29 Renal failure: <15 There is reduced accuracy above 60ml/min/1.73 m squared, but the numeric value may be clinically useful in the near 60 range Glomerular Filtration Rate (GFR) is estimated based on the CKD-EPI equation, which assumes a steady state for creatinine as recommended by the National Kidney Disease Education Program in conjunction with the National Institutes of Health and the National Kidney Foundation. Clinical conditions in which it may be necessary to measure GFR by using clearance methods include extremes of age and body size, severe malnutrition or obesity, diseases of skeletal muscle, paraplegia or quadriplegia, vegetarian diet, rapidly changing kidney function, and calculation of the dose of potentially toxic drugs that are excreted by the kidneys. 7 Updated Reference Range 8 Per NCEP ATP III Guidelines: Results lower than 40 mg/dL are suggestive of increased risk for coronary artery disease. Results > or=to 60 mg/dL are considered a negative risk factor. 9 Per NCEP ATP III Guidelines: Normal Population <130 Patients with medical conditions: CHD/DM Optimal: <100 Borderline high: 130-159 High: 160-189 Very high: >189 10 PT IS UNSURE IF THIS IS WORKER'S COMP RELATED 11 POSSIBLE UROGENITAL CONTAMINATION. 12 URINE, CLEAN CATCH 13 6 mos 14 Updated reference range on new analyzer 15 Updated reference range on new analyzer 16 Concerning GFR Guidelines for Americans: Normal function or mild renal disease, if clinically at risk: >/=60 mL/min Moderately decreased: 30-59 Severely decreased: 15-29 Renal failure: <15 17 Concerning GFR Guidelines: Normal function or mild renal disease, if clinically at risk: >/=60 mL/min Moderately decreased: 30-59 Severely decreased: 15-29 Renal failure: <15 Glomerular Filtration Rate (GFR) is estimated based on the MDRD equation, which assumes a steady state for creatinine as recommended by the National Kidney Disease Education Program in conjunction with the National Institutes of Health and the National Kidney Foundation. Clinical conditions in which it may be necessary to measure GFR by using clearance methods include extremes of age and body size, severe malnutrition or obesity, diseases of skeletal muscle, paraplegia or quadriplegia, vegetarian diet, rapidly changing kidney function, and calculation of the dose of potentially toxic drugs that are excreted by the kidneys. 18 Updated Reference Range 19 Per NCEP ATP III Guidelines: Results lower than 40 mg/dL are suggestive of increased risk for coronary artery disease. Results > or=to 60 mg/dL are considered a negative risk factor. 20 Per NCEP ATP III Guidelines: Normal Population <130 Patients with medical conditions: CHD/DM Optimal: <100 Borderline high: 130-159 High: 160-189 Very high: >189 21 today 22 Updated reference range on new analyzer 23 Updated reference range on new analyzer 24 Concerning GFR Guidelines for Americans: Normal function or mild renal disease, if clinically at risk: >/=60 mL/min Moderately decreased: 30-59 Severely decreased: 15-29 Renal failure: <15 25 Concerning GFR Guidelines: Normal function or mild renal disease, if clinically at risk: >/=60 mL/min Moderately decreased: 30-59 Severely decreased: 15-29 Renal failure: <15 Glomerular Filtration Rate (GFR) is estimated based on the MDRD equation, which assumes a steady state for creatinine as recommended by the National Kidney Disease Education Program in conjunction with the National Institutes of Health and the National Kidney Foundation. Clinical conditions in which it may be necessary to measure GFR by using clearance methods include extremes of age and body size, severe malnutrition or obesity, diseases of skeletal muscle, paraplegia or quadriplegia, vegetarian diet, rapidly changing kidney function, and calculation of the dose of potentially toxic drugs that are excreted by the kidneys. 26 Updated Reference Range 27 Per NCEP ATP III Guidelines: Results lower than 40 mg/dL are suggestive of increased risk for coronary artery disease. Results > or=to 60 mg/dL are considered a negative risk factor. 28 Per NCEP ATP III Guidelines: Normal Population <130 Patients with medical conditions: CHD/DM Optimal: <100 Borderline high: 130-159 High: 160-189 Very high: >189 29 Concerning GFR Guidelines for Americans: Normal function or mild renal disease, if clinically at risk: >/=60 mL/min Moderately decreased: 30-59 Severely decreased: 15-29 Renal failure: <15 30 Concerning GFR Guidelines: Normal function or mild renal disease, if clinically at risk: >/=60 mL/min Moderately decreased: 30-59 Severely decreased: 15-29 Renal failure: <15 Glomerular Filtration Rate (GFR) is estimated based on the MDRD equation, which assumes a steady state for creatinine as recommended by the National Kidney Disease Education Program in conjunction with the National Institutes of Health and the National Kidney Foundation. Clinical conditions in which it may be necessary to measure GFR by using clearance methods include extremes of age and body size, severe malnutrition or obesity, diseases of skeletal muscle, paraplegia or quadriplegia, vegetarian diet, rapidly changing kidney function, and calculation of the dose of potentially toxic drugs that are excreted by the kidneys. 31 3 mos 32 Per NCEP ATP III Guidelines: Results lower than 40 mg/dL are suggestive of increased risk for coronary artery disease. Results > or=to 60 mg/dL are considered a negative risk factor. 33 Per NCEP ATP III Guidelines: Normal Population <130 Patients with medical conditions: CHD/DM Optimal: <100 Borderline high: 130-159 High: 160-189 Very high: >189 34 prior to follow-up in 2 mos 35 Per NCEP ATP III Guidelines: Results lower than 40 mg/dL are suggestive of increased risk for coronary artery disease. Results > or=to 60 mg/dL are considered a negative risk factor. 36 Per NCEP ATP III Guidelines: Normal Population <130 Patients with medical conditions: CHD/DM Optimal: <100 Borderline high: 130-159 High: 160-189 Very high: >189 37 Updated reference range on new analyzer 38 Updated reference range on new analyzer 39 Concerning GFR Guidelines: Normal function or mild renal disease, if clinically at risk: >/=60 mL/min Moderately decreased: 30-59 Severely decreased: 15-29 Renal failure: <15 Glomerular Filtration Rate (GFR) is estimated based on the MDRD equation, which assumes a steady state for creatinine as recommended by the National Kidney Disease Education Program in conjunction with the National Institutes of Health and the National Kidney Foundation. Clinical conditions in which it may be necessary to measure GFR by using clearance methods include extremes of age and body size, severe malnutrition or obesity, diseases of skeletal muscle, paraplegia or quadriplegia, vegetarian diet, rapidly changing kidney function, and calculation of the dose of potentially toxic drugs that are excreted by the kidneys. 40 Concerning GFR Guidelines for Americans: Normal function or mild renal disease, if clinically at risk: >/=60 mL/min Moderately decreased: 30-59 Severely decreased: 15-29 Renal failure: <15 41 Updated reference range on new analyzer 42 CP AND SOB 43 <=0.49 ug/mL - Low likelihood of DIC, DVT or Pulmonary Embolism >0.49 ug/mL - Additional testing should be done to rule out DIC, DVT, or Pulmonary embolism as clinically indicated. ([facility] has established a 97.89% negative predictive value for thrombotic disease when a cutoff value of 0.5 ug/mL is used.) 44 soon 45 Concerning GFR Guidelines for Americans: Normal function or mild renal disease, if clinically at risk: >/=60 mL/min Moderately decreased: 30-59 Severely decreased: 15-29 Renal failure: <15 46 Concerning GFR Guidelines: Normal function or mild renal disease, if clinically at risk: >/=60 mL/min Moderately decreased: 30-59 Severely decreased: 15-29 Renal failure: <15 Glomerular Filtration Rate (GFR) is estimated based on the MDRD equation, which assumes a steady state for creatinine as recommended by the National Kidney Disease Education Program in conjunction with the National Institutes of Health and the National Kidney Foundation. Clinical conditions in which it may be necessary to measure GFR by using clearance methods include extremes of age and body size, severe malnutrition or obesity, diseases of skeletal muscle, paraplegia or quadriplegia, vegetarian diet, rapidly changing kidney function, and calculation of the dose of potentially toxic drugs that are excreted by the kidneys. 47 Per NCEP ATP III Guidelines: Results lower than 40 mg/dL are suggestive of increased risk for coronary artery disease. Results > or=to 60 mg/dL are considered a negative risk factor. 48 Per NCEP ATP III Guidelines: Normal Population <130 Patients with medical conditions: CHD/DM Optimal: <100 Borderline high: 130-159 High: 160-189 Very high: >189 49 R07.9 R53.1 50 0.0 - 0.045 ng/mL: Normal 0.046 - 0.5 ng/mL: Suggestive 0.6 - 1.5 ng/mL: Consistent 51 Note: Persistent reduction for 3 months or more in an eGFR <60 mL/min/1.73 m2 defines CKD. Patients with eGFR values >/=60 mL/min/1.73 m2 may also have CKD if evidence of persistent proteinuria is present. The original MDRD equation for estimated GFR is not valid for patients less than 18 years of age. Additional information may be found at www.kdoqi.org. 52 STAT [phone] PH [phone] Microbiology results [facility] FINAL RESULT No growth 54 Unless otherwise specified, testing performed by [facility] [address] [place] [id number] today 56 Per NCEP ATP III Guidelines: Results lower than 40 mg/dL are suggestive of increased risk for coronary artery disease. Results > or=to 60 mg/dL are considered a negative risk factor. 57 Per NCEP ATP III Guidelines: Normal Population <130 Patients with medical conditions: CHD/DM Optimal: <100 Borderline high: 130-159 High: 160-189 Very high: >189 58 Concerning GFR Guidelines for Americans: Normal function or mild renal disease, if clinically at risk: >/=60 mL/min Moderately decreased: 30-59 Severely decreased: 15-29 Renal failure: <15 59 Concerning GFR Guidelines: Normal function or mild renal disease, if clinically at risk: >/=60 mL/min Moderately decreased: 30-59 Severely decreased: 15-29 Renal failure: <15 Glomerular Filtration Rate (GFR) is estimated based on the MDRD equation, which assumes a steady state for creatinine as recommended by the National Kidney Disease Education Program in conjunction with the National Institutes of Health and the National Kidney Foundation. Clinical conditions in which it may be necessary to measure GFR by using clearance methods include extremes of age and body size, severe malnutrition or obesity, diseases of skeletal muscle, paraplegia or quadriplegia, vegetarian diet, rapidly changing kidney function, and calculation of the dose of potentially toxic drugs that are excreted by the kidneys. 60 Concerning GFR Guidelines for Americans: Normal function or mild renal disease, if clinically at risk: >/=60 mL/min Moderately decreased: 30-59 Severely decreased: 15-29 Renal failure: <15 61 Concerning GFR Guidelines: Normal function or mild renal disease, if clinically at risk: >/=60 mL/min Moderately decreased: 30-59 Severely decreased: 15-29 Renal failure: <15 Glomerular Filtration Rate (GFR) is estimated based on the MDRD equation, which assumes a steady state for creatinine as recommended by the National Kidney Disease Education Program in conjunction with the National Institutes of Health and the National Kidney Foundation. Clinical conditions in which it may be necessary to measure GFR by using clearance methods include extremes of age and body size, severe malnutrition or obesity, diseases of skeletal muscle, paraplegia or quadriplegia, vegetarian diet, rapidly changing kidney function, and calculation of the dose of potentially toxic drugs that are excreted by the kidneys. 62 Laboratory [place] [address] Surgical Pathology Report Specimen(s) Received A: Endometrial biopsy Clinical Diagnosis and History Endometrial biopsy, menorrhagia Gross Description Specimen received in formalin labeled "endometrial biopsy" is 2.0 cc of irregular gibbons brown fragments of soft tissue, clotted blood and mucus, which is totally submitted in one cassette. [facility] rff/mwg Diagnosis ENDOMETRIUM, BIOPSY: Fragments of benign early secretory endometrium, approximately Day 16-17. Multiple levels examined. Technical component processed at [facility], Histopathology, [address] [place] [address], [facility]. Diagnosis and reporting performed at [place] [address]. Reported: 01/05/2015 16:04 Electronically Signed Out By Medardo Juan MD [facility] ICD9 Codes 626.2 Unless otherwise specified, testing performed by [facility], [address] [address] 63 Concerning GFR Guidelines for Americans: Normal function or mild renal disease, if clinically at risk: >/=60 mL/min Moderately decreased: 30-59 Severely decreased: 15-29 Renal failure: <15 64 Concerning GFR Guidelines: Normal function or mild renal disease, if clinically at risk: >/=60 mL/min Moderately decreased: 30-59 Severely decreased: 15-29 Renal failure: <15 Glomerular Filtration Rate (GFR) is estimated based on the MDRD equation, which assumes a steady state for creatinine as recommended by the National Kidney Disease Education Program in conjunction with the National Institutes of Health and the National Kidney Foundation. Clinical conditions in which it may be necessary to measure GFR by using clearance methods include extremes of age and body size, severe malnutrition or obesity, diseases of skeletal muscle, paraplegia or quadriplegia, vegetarian diet, rapidly changing kidney function, and calculation of the dose of potentially toxic drugs that are excreted by the kidneys. 65 Non- ..... 2.2-30.3 ng/mL ......... 8.1-347.6 ng/mL Post-Menopausal .. 0.7-31.5 ng/mL 66 Approximate Gestational Age and Total BHCG Range: 0.2 - 1 Week........................5-50 mIU/mL 1 - 2 Weeks.....................50-500 mIU/mL 2 - 3 Weeks..................100-5,000 mIU/mL 3 - 4 Weeks.................500-10,000 mIU/mL 4 - 5 Weeks...............1,000-50,000 mIU/mL 5 - 6 Weeks.............10,000-100,000 mIU/mL 6 - 8 Weeks.............15,000-200,000 mIU/mL 2 - 3 Months............10,000-100,000 mIU/mL 67 Reference Range: Follicular Phase ............... 19.5 - 144.2 pg/mL Mid-Cycle Peak ................. 63.9 - 356.7 pg/mL Luteal Phase ................... 55.8 - 214.2 pg/mL Postmenopausal Female .......... 0 - 32.2 pg/mL 68 FAX ELLA MILLIGAN NP FAX [phone] 69 FAX ELLA MILLIGAN LATHE MACHINIST FAX [phone] 70 Cytology Laboratory [address], [address] [place] [address] CYTOLOGY REPORT Name: Antonia Judge : 1975 (Age: 38) Sex: F Location: [facility]. Rec. # [id number] Date Collected: 11/24/2013 Billing #: [id number] Date Received: 11/24/2013 Requisition # [id number] Physician(s): KEILA CAMPBELL MD Source of Specimen: ENDOCERVICAL/ECTOCERVICAL THIN PREP Clinical Information: Date of Last Menstrual Period: 11/12/13 Other Clinical Conditions: Additional comment: wnl Interpretation: NEGATIVE FOR INTRAEPITHELIAL LESION OR MALIGNANCY. Specimen Adequacy: SATISFACTORY FOR EVALUATION. Additional Findings: ENDOCERVICAL/TRANSFORMATION ZONE PRESENT. lar Electronic Signature RANDY Pierre (ASCP) Reported: 11/29/2013 Also seen by :RANDY Bobo (ASCP ) [facility] HPV High Risk Date Ordered: 11/25/2013 Status: Signed Out Date Reported: 11/26/2013 High Risk NEGATIVE (HPV types 16, 18, 31 , 33, 35, 39, 45, 51, 52, 56, 58, 59, 66, 68) [facility] HPV HR Electronic Signature Isabel Higgins [facility] [employer] [facility] ICD-9 Code(s) V72.31 71 NORMAL THROAT JAVID 72 Cytology Laboratory [address], [address] [place] [address] CYTOLOGY REPORT Name: Antonia Judge : 1975 (Age: 38) Sex: F Location: [facility] Med. Rec. # [id number] Date Collected: 11/24/2013 Billing #: [id number] Date Received: 11/24/2013 Requisition # [id number] Physician(s): KEILA CAMPBELL MD Source of Specimen: ENDOCERVICAL/ECTOCERVICAL THIN PREP Clinical Information: Date of Last Menstrual Period: 11/12/13 Other Clinical Conditions: Additional comment: wnl Interpretation: NEGATIVE FOR INTRAEPITHELIAL LESION OR MALIGNANCY. Specimen Adequacy: SATISFACTORY FOR EVALUATION. Additional Findings: ENDOCERVICAL/TRANSFORMATION ZONE PRESENT. lar Electronic Signature RANDY Pierre (ASCP) Reported: 11/29/2013 Also seen by :RANDY Bobo (ASCP ) [facility] HPV High Risk Date Ordered: 11/25/2013 Status: Signed Out Date Reported: 11/26/2013 High Risk NEGATIVE (HPV types 16, 18, 31 , 33, 35, 39, 45, 51, 52, 56, 58, 59, 66, 68) [facility] HPV HR Electronic Signature Isabel Gisela [facility] ICD-9 Code(s) V72.31 73 NORMAL THROAT JAVID 74 NORMAL THROAT JAVID 75 SOON 76 NEGATIVE FOR EKATERINA SPECIES Testing Performed by: [facility] [place] [address] 77 NEGATIVE FOR GARDNERELLA VAGINALIS 78 NEGATIVE FOR TRICHOMONAS VAGINALIS 79 Cytology Laboratory [address], [address] [place] [address] CYTOLOGY REPORT Name: Antonia Judge : 1975 (Age: 35) Sex: F Location: [facility] Soc. Sec. #: [id number] Date Collected: 05/24/2011 Billing #: [id number] Date Received: 05/24/2011 Med. Rec. #: [id number] Requisition # [id number] Physician(s): KEILA CAMPBELL MD Source of Specimen: ENDOCERVICAL/ECTOCERVICAL THIN PREP Clinical Information: Date of Last Menstrual Period: 04/24/11 Menstrual History: Regular Specimen Adequacy: SATISFACTORY FOR EVALUATION. ADEQUATE ENDOCERVICAL/TRANSFORMATION ZONE. General Categorization: NEGATIVE FOR INTRAEPITHELIAL LESION OR MALIGNANCY. dcl Electronic Signature RANDY Lugo (ASCP) Reported: 05/29/2011 Also seen by:RANDY Lugo (ASCP) [facility] ICD-9 Code(s) V72.31 80 Cytology Laboratory [address], [address] [place] [address] CYTOLOGY REPORT Name: Antonia Judge : 1975 (Age: 35) Sex: F Location: [facility]. Sec. #: [id number] Date Collected: 05/24/2011 Billing #: [id number] Date Received: 05/24/2011 Med. Rec. #: [id number] Requisition # [id number] Physician(s): KEILA CAMPBELL MD Source of Specimen: ENDOCERVICAL/ECTOCERVICAL THIN PREP Clinical Information: Date of Last Menstrual Period: 04/24/11 Menstrual History: Regular Specimen Adequacy: SATISFACTORY FOR EVALUATION. ADEQUATE ENDOCERVICAL/TRANSFORMATION ZONE. General Categorization: NEGATIVE FOR INTRAEPITHELIAL LESION OR MALIGNANCY. dcl Electronic Signature RANDY Lugo (ASCP) Reported: 05/29/2011 Also seen by:RANDY Lugo (ASCP) [facility] ICD-9 Code(s) V72.31 81 today 82 NO GROWTH: FINAL REPORT 83 QUERY: @EMR Pat ID: QUERY: @EMR Req #: 84 QUERY: @EMR Pat ID: QUERY: @EMR Req #: 85 GRAM STAIN ! NO ORGANISMS SEEN 86 Note: Persistent reduction for 3 months or more in an eGFR <60 mL/min/1.73 m2 defines CKD. Patients with eGFR values >/=60 mL/min/1.73 m2 may also have CKD if evidence of persistent proteinuria is present. The original MDRD equation for estimated GFR is not valid for patients less than 18 years of age. Additional information may be found at www.kdoqi.org. 87 QUERY: @EMR Pat ID: QUERY: @EMR Req #: 88 Note: Persistent reduction for 3 months or more in an eGFR <60 mL/min/1.73 m2 defines CKD. Patients with eGFR values >/=60 mL/min/1.73 m2 may also have CKD if evidence of persistent proteinuria is present. The original MDRD equation for estimated GFR is not valid for patients less than 18 years of age. Additional information may be found at www.kdoqi.org. 89 QUERY: @EMR Pat ID: QUERY: @EMR Req #: 90 Cytology [id number], [address] [place] [address] CYTOLOGY REPORT Name: Antonia Judge : 1975 (Age: 33) Sex: F Location: [facility] Soc. Sec. #: [id number] Date Collected: 01/16/2009 Billing #: [id number] Date Received: 01/16/2009 Requisition # [id number] Physician(s): KEILA CAMPBELL MD Source of Specimen: ENDOCERVICAL/ECTOCERVICAL THIN PREP Clinical Information: Date of Last Menstrual Period: 01/02/09 Menstrual History:Regular Specimen Adequacy: SATISFACTORY FOR EVALUATION. ADEQUATE ENDOCERVICAL/TRANSFORMATION ZONE. General Categorization: NEGATIVE FOR INTRAEPITHELIAL LESION OR MALIGNANCY. tfn Electronic Signature RANDY Siddiqui (ASCP) Reported: 01/19/2009 Also seen by :RANDY Bobo (ASCP) [facility] ICD-9 Code(s) V72.31 91 FASTING 1 year 92 Normal Range: Male: <4.98 Female: <4.45 93 NORMAL THROAT JAVID 94 Cytology [id number], [address] [place] [address] CYTOLOGY REPORT Name: Antonia Judge : 1975 (Age: 32) Sex: F Location: [facility] Soc. Sec. #: [id number] Date Collected: 11/30/2007 Billing #: [id number] Date Received: 12/01/2007 Physician(s): KEILA CAMPBELL MD Source of Specimen: ENDOCERVICAL/ECTOCERVICAL THIN PREP Clinical Information: Date of Last Menstrual Period: 11/17/07 Menstrual History:Regular Specimen Adequacy: SATISFACTORY FOR EVALUATION. ADEQUATE ENDOCERVICAL/TRANSFORMATION ZONE. General Categorization : NEGATIVE FOR INTRAEPITHELIAL LESION OR MALIGNANCY. Descriptive Evaluation: REACTIVE CELLULAR CHANGES ASSOCIATED WITH INFLAMMATION. jib Electronic Signature Rafi Jarvis MD Reported: 12/04/2007 Also seen by: RANDY Huitron (ASCP) [facility] ICD-9 Code(s) V72.31 A: 616.9 95 FASTING 3 mos 96 Normal Range: Male: <4.98 Female: <4.45 97 Cytology Laboratory [address] [place] [address], [address] [place] [address] CYTOLOGY REPORT Name: Antonia Judge : 1975 (Age: 31) Sex: F Location: [facility] Soc. Sec. #: [id number] Date Collected: 11/27/2006 Billing #: [id number] Date Received: 11/28/2006 Physician(s): KEILA CAMPBELL MD Source of Specimen: ENDOCERVICAL/ECTOCERVICAL THIN PREP Clinical Information: Date of Last Menstrual Period: 11/12/06 Menstrual History: Regular Specimen Adequacy: SATISFACTORY FOR EVALUATION. ADEQUATE ENDOCERVICAL/TRANSFORMATION ZONE. General Categorization : NEGATIVE FOR INTRAEPITHELIAL LESION OR MALIGNANCY. mda Electronic Signature RANDY Caro (ASCP) Reported: 12/02/2006 [facility] ICD-9 Code(s) V72.31 98 FASTING 3-4 mos 99 Normal Range: Male: <4.98 Female: <4.45 100 FASTING 6 mos 101 Normal Range: Male: <4.98 Female: <4.45 Procedures Date Code Description Status 02/23/2018 [id number] Mammogram Completed 01/29/2018 95233 Brief Emotional/Behav Assessment W/ Scoring Doc Per Completed Standard Inst 07/21/2017 68940 Measure Blood Oxygen Level Single Determination Completed 02/06/2017 82903 Echography Pelvic Complete Completed 01/04/2017 22198 Measure Blood Oxygen Level Single Determination Completed 08/28/2016 14012 Measure Blood Oxygen Level Single Determination Completed 08/13/2016 03796 X-Ray Spine Thoracic, Min 4 Views Completed 08/01/2016 79305 Electrocardiogram Complete Completed 08/01/2016 55883 X-Ray Chest Two Views Frontal & Lateral Completed 06/28/2016 34717 Measure Blood Oxygen Level Single Determination Completed 02/08/2016 44130 ECHO Transthoracis 2D W Spectral Doppler Completed 01/02/2015 11749 Biopsy Endometrial/Endocervical Completed 12/15/2014 81348 Echography Pelvic Complete Completed 12/15/2014 27965 Echography Transvaginal Completed 11/17/2014 53236 Ultrasound Breast Unilateral Real Time W/ Image Doc Inc Completed Axilla 10/24/2014 34289 Mammography Unilateral Completed 10/24/2014 [id number] Mammogram Completed 12/03/2013 45766 Measure Blood Oxygen Level Single Determination Completed 11/24/2013 00989 Measure Blood Oxygen Level Single Determination Completed 03/12/2012 90380 Measure Blood Oxygen Level Single Determination Completed 12/15/2008 27678 Measure Blood Oxygen Level Single Determination Completed Encounters Type Date Location Provider Dx Diagnosis Office Visit 08/28/2018 4:15p [facility] Keila Campbell MD M54.5 Low back pain N20.0 Calculus of kidney R31.9 Hematuria, unspecified Z68.37 Body mass index (BMI) 37.0-37.9, adult Office Visit 08/03/2018 8:00a [facility] Keila Campbell MD Z00.00 Encntr for general adult medical exam w/o abnormal findings E78.2 Mixed hyperlipidemia Q76.0 Spina bifida occulta G60.0 Hereditary motor and sensory neuropathy N20.0 Calculus of kidney F33.1 Major depressive disorder, recurrent, moderate M54.5 Low back pain 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 Z13.31 Encounter for screening for depression R05 Cough I11.9 Hypertensive heart disease without heart failure Z68.36 Body mass index (BMI) 36.0-36.9, adult I10 Essential (primary) hypertension Z87.891 Personal history of nicotine dependence Office Visit 01/29/2018 8:15a [facility] Keila Campbell MD Z01.419 Encntr for speech assistant exam (general) (routine) w/o abn findings Z13.89 Encounter for screening for other disorder E78.2 Mixed hyperlipidemia Q76.0 Spina bifida occulta G60.9 Hereditary and idiopathic neuropathy, unspecified N20.0 Calculus of kidney F33.1 Major depressive disorder, recurrent, moderate M54.5 Low back pain I10 Essential (primary) hypertension 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 Z12.31 Encntr screen mammogram for malignant neoplasm of breast Z68.34 Body mass index (BMI) 34.0-34.9, adult Office Visit 11/25/2017 2:45p [facility] Keila Campbell MD R07.9 Chest pain, unspecified R12 Heartburn F17.211 Nicotine dependence, cigarettes, in remission Z68.33 Body mass index (BMI) 33.0-33.9, adult Office Visit 09/18/2017 8:45a [facility] Keila Campbell MD F33.1 Major depressive disorder, recurrent, moderate 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 E78.2 Mixed hyperlipidemia Q76.0 Spina bifida occulta G60.9 Hereditary and idiopathic neuropathy, unspecified N20.0 Calculus of kidney M54.5 Low back pain I10 Essential (primary) hypertension I73.00 Raynaud's syndrome without gangrene Office Visit 07/21/2017 8:45a [facility] Keila Campbell MD R05 Cough Office Visit 05/30/2017 8:00a [facility] Keila Campbell MD E78.2 Mixed hyperlipidemia 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 I10 Essential (primary) hypertension M54.5 Low back pain F33.1 Major depressive disorder, recurrent, moderate N20.0 Calculus of kidney G60.9 Hereditary and idiopathic neuropathy, unspecified Q76.0 Spina bifida occulta F17.211 Nicotine dependence, cigarettes, in remission Office Visit 01/27/2017 8:15a [facility] Keila Campbell MD Z01.419 Encntr for speech assistant exam (general) (routine) w/o abn findings K64.9 Unspecified hemorrhoids R10.2 Pelvic and perineal pain Z68.34 Body mass index (BMI) 34.0-34.9, adult F33.1 Major depressive disorder, recurrent, moderate E78.2 Mixed hyperlipidemia Q76.0 Spina bifida occulta G60.9 Hereditary and idiopathic neuropathy, unspecified N20.0 Calculus of kidney M54.5 Low back pain F17.210 Nicotine dependence, cigarettes, uncomplicated Z12.31 Encntr screen mammogram for malignant neoplasm of breast Office Visit 01/04/2017 10:15a [facility] Shawn Suarez DO J01.90 Acute sinusitis, unspecified Office Visit 10/29/2016 1:30p [facility] Keila Campbell MD Z01.818 Encounter for other preprocedural examination N20.0 Calculus of kidney M54.5 Low back pain Z72.0 Tobacco use G60.9 Hereditary and idiopathic neuropathy, unspecified Q76.0 Spina bifida occulta E78.2 Mixed hyperlipidemia R09.81 Nasal congestion Office Visit 10/04/2016 9:45a [facility] Keila Campbell MD R03.0 Elevated blood -pressure reading, w/o diagnosis of htn R09.81 Nasal congestion Office Visit 09/18/2016 9:15a [facility] Keila Campbell MD J01.90 Acute sinusitis, unspecified R03.0 Elevated blood-pressure reading, w/o diagnosis of htn M54.5 Low back pain Office Visit 08/28/2016 1:45p [facility] Rios Maldonado01.90 Acute sinusitis, Minerva, LATHE MACHINIST unspecified Office Visit 08/13/2016 9:00a [facility] Keila Campbell MD E78.2 Mixed hyperlipidemia G60.9 Hereditary and idiopathic neuropathy, unspecified F33.1 Major depressive disorder, recurrent, moderate M54.5 Low back pain R94.31 Abnormal electrocardiogram [ECG] [EKG] Z72.0 Tobacco use R07.9 Chest pain, unspecified M54.6 Pain in thoracic spine Office Visit 08/01/2016 10:30a [facility] Keila Campbell MD R07.9 Chest pain, unspecified F17.210 Nicotine dependence, cigarettes, uncomplicated R53.1 Weakness Office Visit 06/28/2016 1:45p [facility] Leatha Mina, L02.13 Carbuncle of neck PA Office Visit 03/13/2016 11:00a [facility] Keila Campbell MD Z01.818 Encounter for other preprocedural examination Z72.0 Tobacco use Q76.0 Spina bifida occulta E78.2 Mixed hyperlipidemia G60.9 Hereditary and idiopathic neuropathy, unspecified F33.1 Major depressive disorder, recurrent, moderate M54.5 Low back pain R94.31 Abnormal electrocardiogram [ECG] [EKG] Office Visit 01/24/2016 8:30a [facility] Keila Campbell MD Z01.419 Encntr for speech assistant exam (general) (routine) w/o abn findings E78.2 Mixed hyperlipidemia Q76.0 Spina bifida occulta Z72.0 Tobacco use G60.9 Hereditary and idiopathic neuropathy, unspecified N20.0 Calculus of kidney Z12.31 Encntr screen mammogram for malignant neoplasm of breast F33.1 Major depressive disorder, recurrent, moderate R01.1 Cardiac murmur, unspecified R31.9 Hematuria, unspecified Office Visit 10/11/2015 10:45a [facility] Keila Campbell MD J01.00 Acute maxillary sinusitis, unspecified H60.311 Diffuse otitis externa, RIGHT ear Office Visit 05/17/2015 9:00a [facility] Keila Campbell MD V72.84 Examination Preoperative Unspec 626.2 Menstruation Excessive Or Frequent 356.0 Neuropathy Peripheral Hereditary 305.1 Tobacco Use Disorder 756.17 Spina Bifida Occulta Congenital 272.2 Hyperlipidemia Mixed Office Visit 04/06/2015 10:15a [facility] Keila Campbell MD 626.2 Menstruation Excessive Or Frequent Office Visit 12/23/2014 9:45a [facility] Keila Campbell MD 626.2 Menstruation Excessive Or Frequent Office Visit 12/14/2014 10:30a [facility] Keila Campbell MD 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 626.2 Menstruation Excessive Or Frequent 611.79 Breast Signs & Symptoms Other 305.1 Tobacco Use Disorder Office Visit 10/24/2014 9:30a [facility] Keila Campbell, 611.79 Breast Signs & MD Symptoms Other Office Visit 09/29/2014 10:00a [facility] Keila Campbell, 611.79 Breast Signs & MD Symptoms Other Office Visit 04/14/2009 11:15a Barb Le V70.5 Examination [facility] Defined Subpopulations Plan of Treatment Future Appointment(s):02/02/2019 8:15 am - Keila Campbell MD at [facility]01/28/2019 - Keila Campbell MDR20.8 Other disturbances of skin sensationNew Orders:Nerve Conduction Studies, Ordered: 01/28/19Comments:cause of decreased sensation in the hands is unclear. We will also order for nerve conduction studies to rule out any abnormalities.. may need to see neuro or imaging.Follow up:Follow up as scheduled.M79.662 Pain in LEFT lower legComments:Patient will be treated with Celebrex 1 table daily for 1-2 weeks. She will continue to take her cyclobenzaprine. She was recommended to call [facility] for worsening leg pain.Z68.36 Body mass index (BMI) 36.0-36.9, adult
[2019-01-29 03:02] LABS: ABS Basophils 0.1 10^3/ul (0-0.2); ABS Eosinophils 0.2 10^3/ul (0-0.6); ABS Lymphocytes 2.6 10^3/ul (1.0-4.8); ABS Monocytes 0.6 10^3/ul (0-0.8); ABS Neutrophils 7.3 10^3/ul (1.5-7.7); Eosinophil % 1.9 %; Hematocrit 40 % (35-47); Hemoglobin 13.4 g/dL (12.0-16.0); Lymphocyte % 24.4 %; Mean Corpuscular HGB Conc 33 g/dL (31-36); Mean Corpuscular Hemoglobin 29 pg (27-31); Mean Corpuscular Volume 86 fL (80-97); Mean Platelet Volume 7.6 fL (7.4-10.4); Platelet Count 318 10^3/uL (150-450); Red Blood Count 4.69 10^6 /uL (3.70-4.87); Red Cell Distribution Width 14 % (10.5-15); White Blood Count 10.8 10^3/uL (3.5-10.8)
[2019-01-29 03:08] LABS: Activated Partial Thrombo Time 33.6 seconds (26.0-36.3); INR 0.96 (0.82-1.09)
[2019-01-29 03:19] LABS: Albumin 4.3 g/dL (3.2-5.2); Albumin/Globulin Ratio 1.7 (1-3); BUN/Creatinine Ratio 23.3 (8-20); Calcium 9.1 mg/dL (8.6-10.3); EGFR African American 105.3 (>60); Globulin 2.6 g/dL (2-4); Magnesium 1.7 mg/dL (1.9-2.7); Potassium 3.8 mmol/L (3.5-5.0); Total Bilirubin 0.3 mg/dL (0.2-1.0); Total Protein 6.9 g/dL (6.4-8.9)
[2019-01-29 03:20] LABS: Troponin I 0.01 ng/mL (<0.04)
[2019-01-29] MEDS ORDERED: Acetaminophen TAB* 325 MG PO PRN (04:33)
[2019-01-29] MEDS ORDERED: Iohexol 350* (CONTRAST) 500 ML MDV IV ONE (04:39)
[2019-01-29] MEDS ORDERED: Magnesium Sulfate 2 GM IV* 2 GM/50 ML BAG IVPB ONE (04:43)
[2019-01-29] MEDS: Heparin VIAL(*) 5000 UNITS/ML VIAL (FIVE THOUSAND) SUBCUT SCH ×2 (06:11→15:59)
[2019-01-29] MEDS: oxyCODONE/Acetamin 5/325 MG* TAB PO PRN ×2 (06:18→10:23)
[2019-01-29] MEDS ORDERED: Aspirin EC TAB* 81 MG TAB.EC PO SCH (09:00)
--- NOTE | 2019-01-29 10:46 | HP ---
CC: Dr. Keila Campbell; Dr. Benedict Waters* HISTORY AND PHYSICAL: DATE OF ADMISSION: 01/29/19 PRIMARY CARE PROVIDER: Dr. Keila Campbell. BOILING HOUSE HAND: Dr. Benedict Waters from [facility]iology from [place]. CHIEF COMPLAINT: Chest pain. HISTORY OF PRESENT ILLNESS: Antonia Judge is a 43-year-old female with history of coronary artery disease as well as chronic back pain, for which, she is on disability, who presented today complaining of chest pain. The patient stated that it all started approximately 5 days ago when she started having pain in the back of her left thigh, radiating to the back of her left knee and left calf. She came in on 01/16/19 for evaluation where Dopplers were obtained in the emergency department and was noted to be negative for DVT. The patient was discharged home at that point. The patient stated that she followed with her primary care provider, who prescribed celecoxib and Flexeril. In addition to the left leg pain, she started having bilateral pain in left arm and bilateral forearms that was more related into fingers #4 and 5 and thumbs bilaterally. In addition to that she started having thoracic back pain and chest pain. With the chest pain complaints, she came into the ED for evaluation today. She stated the pain is sharp, nearly constant, localized substernally, radiating to the thoracic back at 5/10 intensity, not associated with shortness of breath. It is worse when she moved and is not pleuritic. the ED provider saw the patient in the emergency department and recommended for the patient to be further evaluation from cardiac standpoint and observation on pvc monitor bed. PAST MEDICAL HISTORY: 1. History of coronary artery disease. The patient stated in 2016, she had cardiac catheterization at [facility] in [place] and at that point she was noted to have blockage of tiny coronary artery that could not be stented. 2. Hypertension. 3. Obesity. 4. History of lumbar stenosis, status post surgery in 2011. Since then the patient had been on disability. 5. History of right wrist surgery. 6. History of hysterectomy. 7. History of vein stripping on the left leg. MEDICATIONS: Include: 1. Duloxetine 60 mg daily. 2. Aspirin 81 mg daily. 3. Atorvastatin 40 mg daily. 4. Lisinopril 5 mg daily. 5. Nitroglycerin on a p.r.n. basis. 6. Omeprazole 20 mg daily. 7. Celecoxib 200 mg daily. 8. Vitamin D3 1000 units q.a.m. 9. Flexeril 10 mg on a p.r.n. basis. ALLERGIES: No known drug allergies. FAMILY HISTORY: Positive for father with history of coronary artery bypass grafting and diabetes, who at the age of 62 secondary to his heart disease. Mother who is alive with diabetes. SOCIAL HISTORY: The patient has a history of 20-pack year smoking and she quit 2016. She denies any alcohol or drug use. She lives with her boyfriend, Samuel Torres, who would be her surrogate. REVIEW OF SYSTEMS: Please see history of present illness. Remaining 12 systems reviewed with the patient and are otherwise negative. PHYSICAL EXAMINATION GENERAL: The patient is a pleasant 43-year-old female, who is in no acute distress. The patient is alert and oriented x3. Her BMI is 35. VITAL SIGNS: Blood pressure of 106/68, heart rate of 68 and regular, respiratory rate 16, oxygen saturation 96% on room air, temperature of 98.7. HEENT: Head: Atraumatic, normocephalic. Eyes: Pupils are equal, reactive to light and accommodation. Oropharynx clear. Mucosa moist. NECK: Supple. No JVD. No bruits bilaterally. RESPIRATORY: Clear to auscultation bilaterally. CARDIOVASCULAR: Regular rate and rhythm. No murmur. ABDOMEN: Soft, nontender. Bowel sounds are present in all 4 quadrants. EXTREMITIES: On evaluation of the patient's thoracic back, there is tenderness to palpation in the area of approximately T5 to T10 on the musculature surrounding the area of the thoracic spine. On evaluation of bilateral lower extremities, there is no edema. Pulses are +2 bilaterally. No clubbing or cyanosis. There is tenderness to palpation in the left popliteal fossa in the posterior distal thigh on the left. There are no masses on palpation noted. SKIN: On evaluation of the skin, no ecchymotic areas or rashes noted. DIAGNOSTIC STUDIES/LAB DATA: Laboratory data showed, please note the patient had Doppler of the left lower extremity obtained just 3 days ago on 01/26/19, at that point it was negative for DVT. White blood cell count of 10.8, hemoglobin of 13.4, hematocrit of 40, and platelets of 318. Sodium was 138, potassium 3.8, chloride 107, carbon dioxide 24, BUN 17, creatinine 0.73. Liver function tests are unremarkable, but most likely the patient has alkaline phosphatase of 106. Magnesium level was 1.7. The patient's EKG showed normal sinus rhythm with a heart rate of 76 beats per minute with no ST changes. Portable chest x-ray, grossly no abnormalities with normal cardiac silhouette and no pulmonary infiltrates. The official radiologist's report is still pending at the time of dictation. ASSESSMENT AND PLAN: 1. The patient presents with multiple complaints. She is going to be evaluated and observed overnight for chest pain. At this point, it was discussed with the patient that due to her history of left calf pain and her history of obesity, it is imperative to rule out pulmonary embolism and CT angiogram of the chest is going to be obtained. 2. For the history of heart disease, we will obtain pharmacologic cardiac stress test and followup troponins. 3. The patient's left leg pain, likely sciatica related. The patient has history of left leg pain in the past and vein stripping on that side. She also has thoracic back pain to palpation and stated that she had been sleeping in a camper for past few days since the family is camping in a camper van. I suspect that sleeping in a different bed may have strained her back that already has had problems with chronic back pain. In addition to that the patient complains of occasional tingling of the thumb and middle and right fingers bilaterally that indicates peripheral median nerve involvement and likely bilateral carpal tunnel, for which she could be evaluated further by orthopedic surgeon as outpatient. 4. For DVT prophylaxis, the patient is to be placed on heparin subcutaneously. 5. In regards to the patient's history of hypertension, her lisinopril is going to be continued. 6. The patient's code status is full and her surrogate is her boyfriend. TIME SPENT: Approximately 62 minutes were spent on admission of this patient, more than half of that time was spent [id number] with the patient during the interview and physical exam. [id number]/[facility]PS #: [id number] SEN
[2019-01-29] MEDS ORDERED: Regadenoson* 0.4 MG/5 ML SYRINGE ONE (11:29)
[2019-01-29 13:38] VITALS: BP 123/81
[2019-01-29] MEDS ORDERED: Cyclobenzaprine TAB* 10 MG PO ONE (14:20)
[2019-01-29] MEDS ORDERED: Lisinopril TAB* 5 MG PO SCH (18:00)
[2019-01-29] MEDS ORDERED: DULoxetine DR CAP* 60 MG CAP.DR PO SCH (18:00)
[2019-01-29] MEDS ORDERED: Atorvastatin* 40 MG TAB PO SCH (18:00)
--- NOTE | 2019-01-29 22:04 | DS ---
CC: Dr. Keila Campbell; Dr. Benedict Waters * DISCHARGE SUMMARY: DATE OF ADMISSION: 01/29/19 DATE OF DISCHARGE: 01/29/19 PRIMARY CARE PROVIDER: Dr. Keila Campbell. PERSONAL CLOTHING LAUNDRY AIDE: Geremias Mccormack. ATTENDING PHYSICIAN: Dr. Danielle Banerjee * (dictated by VENKAT Middleton). CHIEF COMPLAINT: 1. Chest pain. 2. Right low back pain. 3. Right leg pain. SECONDARY DIAGNOSES: 1. Coronary artery disease. Cardiac cath at [facility] in [place] in 2017. Per patient, she had a blockage of tiny coronary artery that could not be stented. 2. Hypertension. 3. Obesity. 4. Lumbar stenosis, status post fusion in 2011. STUDIES WHILE IN THE HOSPITAL: Chest x-ray 01/29/19, impression: No active cardiopulmonary disease. Chest CTA 01/29/19, impression: No acute pulmonary embolism. Nuclear medicine cardiac stress test 01/29/19, impression: Findings suggestive of a small area of ischemia in the anteroseptal wall. Assessment: Low risk. EKG portion within normal limits. EKG 01/29/19, impression: Normal sinus rhythm. Troponin 0.01 x3. DISCHARGE MEDICATIONS: Home Medications: 1. Cholecalciferol 2000 units p.o. q.a.m. 2. Omeprazole 20 mg p.o. q.a.m. 3. Nitroglycerin 0.4 mg sublingual p.r.n. for chest pain. 4. Lisinopril 5 mg p.o. q.p.m. 5. Atorvastatin 40 mg p.o. q.p.m. 6. Aspirin 81 mg p.o. q.a.m. 7. Duloxetine 60 mg p.o. q.p.m. Coward Medications: 1. Acetaminophen 650 mg p.o. q.4 hours p.r.n. for pain. Changed Home Medications: 1. Celecoxib increased from 200 mg p.o. daily to 200 mg p.o. b.i.d. 2. Cyclobenzaprine 10 mg q.p.m. increased to t.i.d. p.r.n. HISTORY OF PRESENT ILLNESS/HOSPITAL COURSE: Ms. Judge is a 43-year-old female with a past medical history of coronary artery disease and chronic back pain who presents with complaint of chest pain and low back pain that radiates down the left thigh posteriorly. She presented to the ER on 01/16/19 and received a Doppler ultrasound that was negative for DVT. She was discharged home. She then followed up with her primary care provider, who prescribed her celecoxib at 200 q.d. and Flexeril 10 q.d. She has taken this x1. She presented to the ER in the early hours of 01/29/19 with complaints of increasing pain in the back, left leg pain, and chest pain. The patient received a full workup in the ER, which included a CT of the chest, which was negative for pulmonary embolism. Troponins were negative x3. EKG was within normal limits. She was scheduled for a nuclear cardiac stress test the following day, which showed a small area of ischemia with low risk. ASSESSMENT: The patient continued to complain of low back pain with a stabbing pain that shot down the leg. She is noted to have chronic low back pain that began in 2009 after a work accident resulting in a fusion in 2011. She follows with [facility] as well as a neurosurgeon. At this time, she complains of continued low back pain, left posterior leg pain. She has intermittent chest pain, which she attributes to anxiety. Workup for ACS was negative. She denies shortness of breath, cough, fever, abdominal pain, nausea, vomiting, diarrhea, constipation, or pain in the calves, although she does note that her leg pain ends approximately at the proximal mid calf. Ms. Judge is stable for discharge. PHYSICAL EXAMINATION: Vital signs are temperature 97.4 temporal, heart rate 73 , respiratory rate 18, oxygen saturation 100% on room air, blood pressure of 123 /81. General: Ms. Judge is a well-developed, well-nourished, obese, middle- aged white woman who is lying flat on her back. She appears to be uncomfortable , but she is in no acute distress. HEENT: Visual rowland are grossly intact. PERRL without scleral icterus. Hearing is grossly intact. Oral mucous membranes are moist. There are no lesions. Tongue is at midline. Pharynx is clear. Neck: Full range of motion, nontender to palpation. C-spine nontender to palpation. Lumbar spine tender to palpation. Cardiovascular: Regular rate and rhythm with S1 and S2 present. There are no murmurs, rubs, or gallops. There is no JVD. Pulmonary: Symmetrical chest expansion without use of accessory muscles. Lungs are clear to auscultation. There are no wheezes, rhonchi, or rales. Abdomen: Obese. Bowel sounds noted in all quadrants. The abdomen is soft. There is no tenderness to palpation. There is no hepatosplenomegaly. Musculoskeletal: There is no tenderness at the C-spine. There is no tenderness at the T-spine. Tender to palpation at the lower lumbar spine. Patient has decreased range of motion in the left lower extremity. The patient is able to raise the leg less than 30 degrees on the left with full range of motion on the right. Extremities: Skin is warm and smooth bilaterally. There is no clubbing, cyanosis, or edema. Radial and pedal pulses are palpable. Neuro: The patient is awake. She is alert and oriented x3. She is able to move all of her extremities, although there is tenderness with movement of the left leg. She has a steady gait without impairment. DISCHARGE PLAN: Ms. Judge will be discharged to home. CONDITION: Fair. ACTIVITY: As tolerated. It is important to maintain activity in the setting of sciatica, low back pain. It is suggested that the patient start physical therapy. DIET: Heart healthy. MEDICATIONS: 1. Celebrex 200 mg b.i.d. 2. Cyclobenzaprine 10 mg t.i.d. p.r.n. 3. Add Tylenol p.r.n., up to 4 g daily. EDUCATION: 1. Follow up with primary care provider on 02/02/19 as scheduled. 2. Follow up with neurosurgeon in 4 to 7 days. 3. Return to the ER or nearest hospital if you experience any worsening of symptoms, shortness of breath, chest discomfort, dizziness, lightheadedness, loss of consciousness, high fevers, chills, night sweats, or any other worrisome signs or symptoms. This is a summarized report of a complex medical history and hospital stay. For further details, please see the entire medical record. TIME SPENT: Approximately 40 minutes were spent on this discharge; greater than half that time was spent [id number] with the patient discussing discharge plans and instructions. MICHAELA ONEAL, VENKAT [id number]/[facility] #: [id number] SEN
== END 2019-01-29 15:30 | disposition home or self-care (01) ==
LOC: ED 01:53 → MEDTELE 04:33
PROVIDERS: ADMIT Internal Medicine; ATTEND Internal Medicine
DX: R07.9 Chest pain, unspecified (principal); M54.5 Low back pain; M79.604 Pain in right leg; I25.10 Atherosclerotic heart disease of native coronary artery without angina pectoris; Z95.5 Presence of coronary angioplasty implant and graft; I10 Essential (primary) hypertension; E66.9 Obesity, unspecified; M48.061 Spinal stenosis, lumbar region without neurogenic claudication; Z87.39 Personal history of other diseases of the musculoskeletal system and connective tissue; Z79.82 Long term (current) use of aspirin
CPT/HCPCS: 36415; 71045; 71275; 78452; 80053; 83735; 84484; 85025; 85610; 85730; 93005; 93017; 96365; 96366; 96375; 99284; A9270-GY; A9502; G0378; J1644; J2270; J2405; J2785; J3475; Q9967